=== PATIENT | male | born 1985 | race American Indian/Alaskan Native ===

== ENCOUNTER 2019-09-30 23:54 | Emergency (ER) | payer SELFPAY ==
[2019-10-01] MEDS ORDERED: NITROGLYCERIN 0.4 MG TAB SUBL SL ONE (00:21)
[2019-10-01] MEDS ORDERED: ASPIRIN 325 MG TAB PO ONE (00:21)
[2019-10-01] MEDS ORDERED: ACETAMINOPHEN 325 MG TAB PO ONE (00:22)
--- NOTE | 2019-10-01 00:35 | Emergency Department Report ---
ED Chest Pain HPI - General Chief Complaint: Chest Pain Stated Complaint: SIDNEY CHEST PAIN Time Seen by Provider: 10/01/19 00:11 Source: patient, EMS Mode of arrival: Stretcher Limitations: No Limitations - History of Present Illness Initial Comments: Patient is a 34-year-old F Mexican male who is presenting with chest pain for the past day. Patient states pain is in the center and right side of his chest. He has some shortness of breath and just an occasional cough which is nonproductive. Patient states pain is tight sensation is 6 out of 10 in s everity. Patient is worse with exertion and he states he is experiencing dizziness. He has had several episodes of nausea with vomiting. Patient does have a history of hypertension but is noncompliant with medications. He smokes cigarettes as well as marijuana but no other illicit drugs. Severity scale (0 -10): 9 - Related Data Previous Rx's Medication Instructions Recorded Last Taken Type Albuterol INH(or & Nicu Only) 2 puff IH QID PRN #1 inh 08/11/19 Unknown Rx [ProAir HFA Inhaler] Ondansetron [Zofran Odt] 4 mg PO Q8HR PRN #15 tab.rapdis 08/11/19 Unknown Rx Allergies Allergy/AdvReac Type Severity Reaction Status Date / Time No Known Allergies Allergy Unverified 10/01/19 00:28 Heart Score - HEART Score History: Slightly suspicious EKG: Non-specific Age: < 45 Risk factors: No known risk factors Troponin: < normal limit HEART Score: 1 ED Review of Systems ROS: Stated complaint: SIDNEY CHEST PAIN Other details as noted in HPI Comment: All other systems reviewed and negative ED Past Medical Hx - Past Medical History Previous Medical History?: No - Surgical History Past Surgical History?: No - Social History Smoking Status: Current Every Day Smoker Substance Use Type: Alcohol - Medications Home Medications: Home Medications Medication Instructions Recorded Confirmed Last Taken Type Albuterol INH(or & Nicu Only) 2 puff IH QID PRN #1 inh 08/11/19 Unknown Rx [ProAir HFA Inhaler] Ondansetron [Zofran Odt] 4 mg PO Q8HR PRN #15 tab.rapdis 08/11/19 Unknown Rx ED Physical Exam - General Limitations: No Limitations General appearance: alert, in no apparent distress - Head Head exam: Present: atraumatic, normocephalic - Eye Eye exam: Present: normal appearance - ENT ENT exam: Present: mucous membranes moist - Neck Neck exam: Present: normal inspection - Respiratory Respiratory exam: Present: normal lung sounds bilaterally. Absent: respiratory distress, wheezes, rales, chest wall tenderness, accessory muscle use, decreased breath sounds - Cardiovascular Cardiovascular Exam: Present: regular rate, normal rhythm, normal heart sounds. Absent: systolic murmur, diastolic murmur, rubs, gallop - GI/Abdominal GI/Abdominal exam: Present: soft, normal bowel sounds. Absent: distended, tenderness, guarding - Rectal Rectal exam: Present: deferred - Extremities Exam Extremities exam: Present: normal inspection - Back Exam Back exam: Present: normal inspection - Neurological Exam Neurological exam: Present: alert, oriented X3 - Psychiatric Psychiatric exam: Present: normal affect, normal mood - Skin Skin exam: Present: warm, dry, intact, normal color. Absent: rash ED Course Vital Signs 10/01/19 10/01/19 10/01/19 00:22 00:26 00:34 Temperature 98.5 F Pulse Rate 107 H 107 H Respiratory 18 18 Rate Blood Pressure 137/102 Blood Pressure 137/102 [Left] O2 Sat by Pulse 98 98 Oximetry 10/01/19 10/01/19 01:18 01:41 Temperature Pulse Rate 103 H 106 H Respiratory 16 16 Rate Blood Pressure Blood Pressure 128/86 133/88 [Left] O2 Sat by Pulse 99 Oximetry ED Medical Decision Making - Lab Data Result diagrams: 10/01/19 00:24 10/01/19 00:24 Lab Results 10/01/19 10/01/19 10/01/19 Range/Units 00:24 00:24 00:24 WBC 6.0 (4.5-11.0) K/mm3 RBC 4.71 (3.65-5.03) M/mm3 Hgb 14.9 (11.8-15.2) gm/dl Hct 43.6 (35.5-45.6) % MCV 93 (84-94) fl MCH 32 (28-32) pg MCHC 34 (32-34) % RDW 12.3 L (13.2-15.2) % Plt Count 259 (140-440) K/mm3 Lymph % (Auto) 25.6 (13.4-35.0) % [place] % (Auto) 11.0 H (0.0-7.3) % Eos % (Auto) 0.4 (0.0-4.3) % Baso % (Auto) 0.5 (0.0-1.8) % Lymph # 1.5 (1.2-5.4) K/mm3 [place] # 0.7 (0.0-0.8) K/mm3 Eos # 0.0 (0.0-0.4) K/mm3 Baso # 0.0 (0.0-0.1) K/mm3 Seg Neutrophils % 62.5 (40.0-70.0) % Seg Neutrophils # 3.7 (1.8-7.7) K/mm3 PT 13.6 (12.2-14.9) Sec. INR 1.06 (0.87-1.13) APTT 27.3 (24.2-36.6) Sec. D-Dimer 136.52 (0-234) ng/mlDDU Sodium 133 L (137-145) mmol/L Potassium 3.9 (3.6-5.0) mmol/L Chloride 88.5 L (98-107) mmol/L Carbon Dioxide 22 (22-30) mmol/L Anion Gap 26 mmol/L BUN 14 (9-20) mg/dL Creatinine 0.7 L (0.8-1.5) mg/dL Estimated GFR > 60 ml/min BUN/Creatinine Ratio 20 % Glucose 92 (75-100) mg/dL Calcium 9.9 (8.4-10.2) mg/dL Troponin T < 0.010 (0.00-0.029) ng/mL Urine Opiates Screen Urine Methadone Screen Ur Barbiturates Screen Ur Phencyclidine Scrn Ur Amphetamines Screen U Benzodiazepines Scrn Urine Cocaine Screen U Marijuana (THC) Screen 10/01/19 10/01/19 Range/Units 00:24 00:50 WBC (4.5-11.0) K/mm3 RBC (3.65-5.03) M/mm3 Hgb (11.8-15.2) gm/dl Hct (35.5-45.6) % MCV (84-94) fl MCH (28-32) pg MCHC (32-34) % RDW (13.2-15.2) % Plt Count (140-440) K/mm3 Lymph % (Auto) (13.4-35.0) % [place] % (Auto) (0.0-7.3) % Eos % (Auto) (0.0-4.3) % Baso % (Auto) (0.0-1.8) % Lymph # (1.2-5.4) K/mm3 [place] # (0.0-0.8) K/mm3 Eos # (0.0-0.4) K/mm3 Baso # (0.0-0.1) K/mm3 Seg Neutrophils % (40.0-70.0) % Seg Neutrophils # (1.8-7.7) K/mm3 PT (12.2-14.9) Sec. INR (0.87-1.13) APTT (24.2-36.6) Sec. D-Dimer (0-234) ng/mlDDU Sodium (137-145) mmol/L Potassium (3.6-5.0) mmol/L Chloride (98-107) mmol/L Carbon Dioxide (22-30) mmol/L Anion Gap mmol/L BUN (9-20) mg/dL Creatinine (0.8-1.5) mg/dL Estimated GFR ml/min BUN/Creatinine Ratio % Glucose (75-100) mg/dL Calcium (8.4-10.2) mg/dL Troponin T < 0.010 (0.00-0.029) ng/mL Urine Opiates Screen Presumptive negative Urine Methadone Screen Presumptive negative Ur Barbiturates Screen Presumptive negative Ur Phencyclidine Scrn Presumptive negative Ur Amphetamines Screen Presumptive positive U Benzodiazepines Scrn Presumptive negative Urine Cocaine Screen Presumptive positive U Marijuana (THC) Screen Presumptive positive - EKG Data -: EKG Interpreted by Ia - EKG Data 10/01/19 01:34 EKG shows sinus rhythm rate of 100. [place] is normal. There is a prolonged QT. There is appear to be evidence of LVH. There is no evidence of any ST elevation or depression. - Radiology Data Ordering Physician: ALLIE SALINAS MD Date of Service: 10/01/19 Procedure(s): XR chest routine 2V Accession Number(s): [id number] cc: ALLIE SALINAS MD Fluoro Time In Minutes: CHEST 2 VIEWS, 10/01/2019 12:43 AM INDICATION: Cough. Chest pain. COMPARISON: None FINDINGS: Support devices: None. Heart: The cardiac silhouette is normal in size. Lungs/pleura: The lungs are clear of focal airspace disease or significant pleural effusion. Additional findings: No significant acute abnormality. IMPRESSION: 1. No evidence of acute cardiopulmonary process. Signer Name: Bonnie Huertas MD Signed: 10/01/2019 1:03 AM Workstation Name: [employer] Seeking - Medical Decision Making Patient is a 34-year-old F Mexican male is presenting with some right-sided chest discomfort with shortness of breath. Patient is pain is not reproducible. Patient drug screen showed that he is positive for cocaine and amphetamines. This is likely the cause of the patient's pain. He has been ruled out for acute coronary syndrome with 2- troponins. Patient encouraged to not use these illicit drugs as they can lead to worsening of his condition. Patient discharged home. Critical care attestation.: If time is entered above; I have spent that time in minutes in the direct care of this critically ill patient, excluding procedure time. ED Disposition Clinical Impression: Atypical chest pain, Cocaine abuse, Amphetamine abuse Disposition: -01 TO HOME OR SELFCARE Is pt being admited?: No Does the pt Need Aspirin: No Condition: Stable Instructions: Chest Pain (ED) Referrals: ELIEL NEAL MD [Referring] - 3-5 Days Time of Disposition: 02:44
[2019-10-01 00:36] LABS: Basophils % (Auto) 0.5 % (0.0-1.8); Eosinophils % (Auto) 0.4 % (0.0-4.3); Hematocrit 43.6 % (35.5-45.6); Hemoglobin 14.9 gm/dl (11.8-15.2); Lymphocytes # (Auto) 1.5 K/mm3 (1.2-5.4); Lymphocytes % (Auto) 25.6 % (13.4-35.0); Mean Corpuscular HGB Conc 34 % (32-34); Mean Corpuscular Volume 93 fl (84-94); Monocytes # (Auto) 0.7 K/mm3 (0.0-0.8); Platelet Count 259 K/mm3 (140-440); Red Blood Count 4.71 M/mm3 (3.65-5.03); Red Cell Distribution Width 12.3 % (13.2-15.2)
[2019-10-01 00:45] LABS: INR 1.06 (0.87-1.13)
[2019-10-01 00:46] LABS: Partial Thromboplastin Time 27.3 Sec. (24.2-36.6)
[2019-10-01 01:01] LABS: BUN/Creatinine Ratio 20; Blood Urea Nitrogen 14 mg/dL (9-20); Calcium 9.9 mg/dL (8.4-10.2); Hemolysis Index 25
--- NOTE | 2019-10-01 01:07 | XRay Report ---
CHEST 2 VIEWS, 10/01/2019 12:43 AM INDICATION: Cough. Chest pain. COMPARISON: None FINDINGS: Support devices: None. Heart: The cardiac silhouette is normal in size. Lungs/pleura: The lungs are clear of focal airspace disease or significant pleural effusion. Additional findings: No significant acute abnormality. IMPRESSION: 1. No evidence of acute cardiopulmonary process. Signer Name: Bonnie Huertas MD Signed: 10/01/2019 1:03 AM Workstation Name: [email or web address]
[2019-10-01 01:20] LABS: Benzodiazepines Screen,Urine PRESUMPTIVE NEGATIVE; Methadone Screen,Urine PRESUMPTIVE NEGATIVE; Opiate Screen,Urine PRESUMPTIVE NEGATIVE
[2019-10-01 01:32] LABS: Amphetamine Screen,Urine PRESUMPTIVE POSITIVE; Cannabinoid Screen,Urine PRESUMPTIVE POSITIVE; Cocaine Screen,Urine PRESUMPTIVE POSITIVE
[2019-10-01 01:43] VITALS: BP 133/88
== END 2019-10-01 03:00 | disposition home or self-care (01) ==
LOC: ED 23:54
DX: F14.10 Cocaine abuse, uncomplicated (principal); F15.10 Other stimulant abuse, uncomplicated; R07.89 Other chest pain; F17.200 Nicotine dependence, unspecified, uncomplicated
CPT/HCPCS: 36415; 71046; 80048; 80307; 84484; 85025; 85379; 85610; 85730; 93005

== ENCOUNTER 2019-12-10 00:53 | Emergency (ER) | payer SELFPAY | END 2019-12-10 01:45 | disposition left against medical advice (07) | LOC: ED 00:53 | DX: R06.02 Shortness of breath (principal); Z53.21 Procedure and treatment not carried out due to patient leaving prior to being seen by health care provider ==

== ENCOUNTER 2020-06-02 10:55 | Inpatient (IN) | payer OTHER ==
--- NOTE | 2020-06-02 11:32 | Event Note ---
ED Screening Note ED Screening Note: polysub cocaine last night co cp and sob enlarged abd ble edema no hi no si This initial assessment/diagnostic orders/clinical plan/treatment(s) is/are subject to change based on patients health status, clinical progression and re- assessment by fellow clinical providers in the ED. Further treatment and workup at subsequent clinical providers discretion. Patient/guardian urged not to elope from the ED as their condition may be serious if not clinically assessed and managed. Initial orders include: ro cardiac event mhe
[2020-06-02 11:59] LABS: Bilirubin,Urine SM (Negative); Blood,Urine NEG (Negative); Color,Urine Amber (Yellow); Mucus,Urine 2+ /HPF
--- NOTE | 2020-06-02 12:01 | XRay Report ---
CHEST 2 VIEWS INDICATION / CLINICAL INFORMATION: Shortness of breath. COMPARISON: 10/01/2019 FINDINGS: SUPPORT DEVICES: None. HEART / MEDIASTINUM: There is mild cardiomegaly. LUNGS / PLEURA: There is mild interstitial pulmonary edema. No pneumothorax. ADDITIONAL FINDINGS: No significant additional findings. IMPRESSION: 1. Mild cardiomegaly with mild interstitial pulmonary edema likely indicating CHF. Signer Name: Loi Be MD Signed: 06/02/2020 11:56 AM Workstation Name: [id number]
[2020-06-02 12:02] LABS: Amphetamine Screen,Urine Negative; Methadone Screen,Urine Negative; Opiate Screen,Urine Negative
[2020-06-02 12:09] LABS: Ictotest,Urine Positive (Negative)
[2020-06-02 12:54] LABS: Benzodiazepines Screen,Urine PRESUMPTIVE POSITIVE; Cannabinoid Screen,Urine PRESUMPTIVE POSITIVE; Cocaine Screen,Urine PRESUMPTIVE POSITIVE
[2020-06-02 13:09] LABS: Basophils % (Auto) 0.9 % (0.0-1.8); Eosinophils % (Auto) 0.7 % (0.0-4.3); Hematocrit 38.7 % (35.5-45.6); Hemoglobin 12.3 gm/dl (11.8-15.2); Lymphocytes # (Auto) 1.8 K/mm3 (1.2-5.4); Mean Corpuscular HGB Conc 32 % (32-34); Mean Corpuscular Volume 96 fl (84-94); Monocytes # (Auto) 0.7 K/mm3 (0.0-0.8); Monocytes % (Auto) 13.1 % (0.0-7.3); Platelet Count 189 K/mm3 (140-440); Red Blood Count 4.04 M/mm3 (3.65-5.03); Red Cell Distribution Width 13.7 % (13.2-15.2)
[2020-06-02 13:37] LABS: Alanine Aminotransferase 154 units/L (7-56); Albumin 3.3 g/dL (3.9-5); BUN/Creatinine Ratio 13; Blood Urea Nitrogen 10 mg/dL (9-20); Calcium 8.7 mg/dL (8.4-10.2); Hemolysis Index 2
--- NOTE | 2020-06-02 13:52 | Emergency Department Report ---
ED Shortness of Breath HPI - General Chief Complaint: Medical Clearance Stated Complaint: SWELLING IN LOWER EXTREMITIES Time Seen by Provider: 06/02/20 11:31 Source: patient, EMS Mode of arrival: Wheelchair Limitations: No Limitations - History of Present Illness Initial Comments: 35-year-old male, no past medical history, presents to ED with shortness of breath, bilateral lower extremity swelling. States he has had some dyspnea exertion for several months. Patient reports onset of bilateral lower extremity swelling over the last week or 2. Patient reports cough and orthopnea as well. Patient states both hs mom and aunt approximately 1 month ago. His mother of cancer. Patient states he has been depressed about his family a nd also his job. He reports he has been drinking often and using cocaine about 3 times a week. Also reports he has been abusing pills. Patient denies any SI or HI. MD Complaint: shortness of breath -: week(s) (1) Severity: moderate Consistency: intermittent Improves With: rest, upright position Worsens With: lying flat, exertion Associated Symptoms: cough Treatments Prior to Arrival: none - Related Data Home Oxygen Therapy: No Home Medications Medication Instructions Recorded Confirmed Last Taken No Known Home Medications [No 06/02/20 06/02/20 Unknown Reported Home Medications] Allergies Allergy/AdvReac Type Severity Reaction Status Date / Time No Known Allergies Allergy Unverified 10/01/19 00:28 ED Review of Systems ROS: Stated complaint: SWELLING IN LOWER EXTREMITIES Other details as noted in HPI Comment: All other systems reviewed and negative Constitutional: denies: fever Respiratory: cough, orthopnea, SOB with exertion Cardiovascular: edema. denies: chest pain Psychiatric: depression. denies: homicidal thoughts, suicidal thoughts ED Past Medical Hx - Past Medical History Previous Medical History?: No - Social History Smoking Status: Current Every Day Smoker Substance Use Type: Alcohol, Cocaine, Methamphetamines, Other - Medications Home Medications: Home Medications Medication Instructions Recorded Confirmed Last Taken Type No Known Home Medications [No 06/02/20 06/02/20 Unknown History Reported Home Medications] ED Physical Exam - General Limitations: No Limitations General appearance: alert, in no apparent distress - Head Head exam: Present: atraumatic, normocephalic - Eye Eye exam: Present: normal appearance, EOMI - ENT ENT exam: Present: mucous membranes moist - Neck Neck exam: Present: normal inspection - Respiratory Respiratory exam: Present: normal lung sounds bilaterally. Absent: respiratory distress - Cardiovascular Cardiovascular Exam: Present: normal rhythm, tachycardia - GI/Abdominal GI/Abdominal exam: Present: soft. Absent: distended, tenderness - Extremities Exam Extremities exam: Present: other (2+ pitting edema BLE) - Neurological Exam Neurological exam: Present: alert, oriented X3 - Psychiatric Psychiatric exam: Present: normal affect, normal mood - Skin Skin exam: Present: warm, dry, intact, normal color ED Course Vital Signs 06/02/20 06/02/20 11:01 14:26 Temperature 98.8 F Pulse Rate 118 H 102 H Respiratory 22 20 Rate Blood Pressure 103/76 Blood Pressure 108/62 [Left] O2 Sat by Pulse 99 98 Oximetry ED Medical Decision Making - Lab Data Result diagrams: 06/02/20 12:27 06/02/20 12:27 - EKG Data -: EKG Interpreted by [facility] EKG shows normal: sinus rhythm, axis, QRS complexes Rate: normal - EKG Data Interpretation: other (prolonged QT; lateral T wave inversions) - Radiology Data Radiology results: report reviewed, image reviewed - Medical Decision Making 35-year-old male presents to ED with dyspnea on exertion, orthopnea, bilateral lower extremity swelling. Patient likely has new onset CHF secondary to his alcohol and drug abuse. Pulmonary edema present on chest x-ray. IV Lasix given. EKG shows no ST changes. Troponin is normal. Patient will be admitted by hospitalist, , for further management. - Differential Diagnosis CHF Critical care attestation.: If time is entered above; I have spent that time in minutes in the direct care of this critically ill patient, excluding procedure time. ED Disposition Clinical Impression: New onset of congestive heart failure, Elevated liver enzymes, Alcohol abuse, Cocaine abuse Disposition: OP ADMIT IP TO THIS HOSP Is pt being admited?: Yes Condition: Stable Time of Disposition: 14:20
[2020-06-02] MEDS ORDERED: FUROSEMIDE 40 MG/4 ML INJ IV ONE (13:55)
[2020-06-02] MEDS ORDERED: MAGNESIUM HYDROXIDE (MOM) ORAL LIQD UDC PO PRN (15:07)
--- NOTE | 2020-06-02 15:25 | History and Physical Report ---
History of Present Illness Date of examination: 06/02/20 Date of admission: 06/02/20 14:21 Chief complaint: Shortness of breath Lower extremity swelling History of present illness: 35-year-old -E[place]ian with no significant past medical history presenting to the emergency room today complaining of difficulty breathing and lower extremity swelling over the past several months. Extremity swelling is said to have gotten worse over the past 2 weeks. He has had some cough which is nonproductive and he has also been having some orthopnea. He denies any chest pain, no nausea vomiting, no fever or chills, no headache or dizziness. Denies any sick contacts and no recent travel. Denies any contact with anyone with COVID-19. Patient indicates that his aunt and mother about a month ago and therefore he has been drinking alcohol a lot and also has been abusing cocaine about 3 times a week. He states he has been quite depressed about his family and his job but denies any suicidal or homicidal ideations. Work-up in the emergency room today reveals pulmonary edema on chest x-ray. Urine drug screen was positive for benzodiazepine marijuana and cocaine. BNP and liver enzymes were also elevated. Patient admitted with new onset CHF. Past History Past Medical History: No medical history Past Surgical History: No surgical history Social history: lives with family, smoking, alcohol abuse, other (Cocaine, marijuana, methamphetamine abuse) Family history: no significant family history Medications and Allergies Allergies Allergy/AdvReac Type Severity Reaction Status Date / Time No Known Allergies Allergy Unverified 10/01/19 00:28 Home Medications Medication Instructions Recorded Confirmed Last Taken Type No Known Home Medications [No 06/02/20 06/02/20 Unknown History Reported Home Medications] Active Meds: Active Medications Acetaminophen (Acetaminophen 325 Mg Tab) 650 mg PO Q4H PRN PRN Reason: Pain MILD(1-3)/Fever >100.5/MALONE Enoxaparin Sodium (Enoxaparin 40 Mg/0.4 Ml Inj) 40 mg SUB-Q QDAY@2200 NADEEM; Protocol Furosemide (Furosemide 40 Mg/4 Ml Inj) 40 mg IV BID@0600,1800 NADEEM Magnesium Hydroxide (Magnesium Hydroxide (Mom) Oral Liqd Udc) 30 ml PO Q4H PRN PRN Reason: Constipation Morphine Sulfate (Morphine 2 Mg/1 Ml Inj) 2 mg IV Q5MIN PRN PRN Reason: Chest Pain unrelieved by NTG Ondansetron HCl (Ondansetron 4 Mg/2 Ml Inj) 4 mg IV Q8H PRN PRN Reason: Nausea And Vomiting Sodium Chloride (Sodium Chloride 0.9% 10 Ml Flush Syringe) 10 ml IV BID NADEEM Sodium Chloride (Sodium Chloride 0.9% 10 Ml Flush Syringe) 10 ml IV PRN PRN PRN Reason: LINE FLUSH Review of Systems Constitutional: no fever, no chills Ears, nose, mouth and throat: no nasal congestion, no sore throat Cardiovascular: leg edema, no chest pain, no palpitations Respiratory: shortness of breath, no cough Gastrointestinal: no abdominal pain, no nausea, no vomiting, no diarrhea, no melena Genitourinary Male: no dysuria, no hematuria, no flank pain Musculoskeletal: no neck pain, no low back pain Integumentary: no rash, no pruritis Neurological: no headaches, no confusion Psychiatric: depression, no anxiety, no hallucinations, no hopelessness, no confusion Exam - Constitutional Vitals: Temp Pulse Resp BP Pulse Ox 98.8 F 102 H 20 108/62 98 06/02/20 11:01 06/02/20 14:26 06/02/20 14:26 06/02/20 14:26 06/02/20 14:26 General appearance: Present: no acute distress, well-nourished - EENT Eyes: Present: PERRL, EOM intact. Absent: scleral icterus ENT: hearing intact, clear oral mucosa, dentition normal - Neck Neck: Present: supple, normal ROM - Respiratory Respiratory effort: normal Respiratory: bilateral: rales - Cardiovascular Rhythm: regular Heart Sounds: Present: S1 & S2. Absent: gallop, systolic murmur, diastolic murmur, rub - Extremities Extremities: no ischemia, pulses intact, pulses symmetrical, normal temperature, normal color, Full ROM Extremity abnormal: edema (3+ bilateral lower extremity edema) Peripheral Pulses: within normal limits - Abdominal General gastrointestinal: Present: soft, non-tender, non-distended, normal bowel sounds. Absent: mass Male genitourinary: Present: penile edema, scrotal edema - Integumentary Integumentary: Present: clear, warm, dry. Absent: rash - Musculoskeletal Musculoskeletal: strength equal bilaterally - Psychiatric Psychiatric: appropriate mood/affect, intact judgment & insight, memory intact, cooperative - Neurologic Neurologic: CNII-XII intact, no focal deficits, moves all extremities - Additional findings Additional findings: Skin abscess on back of the neck. Tender , 4 x 4 cm in size HEART Score - HEART Score Troponin: Troponin T < 0.010 ng/mL (0.00-0.029) 06/02/20 12:27 Results - Labs CBC & Chem 7: 06/02/20 12:06/02/20 12: Labs: Abnormal lab results 06/02/20 06/02/20 06/02/20 Range/Units 12: 12: 12:27 MCV 96 H (84-94) fl Lymph % (Auto) 37.0 H (13.4-35.0) % [place] % (Auto) 13.1 H (0.0-7.3) % Sodium 133 L (137-145) mmol/L AST 129 H (5-40) units/L ALT 154 H (7-56) units/L NT-Pro-B Natriuret Pep 910.6 H (0-450) pg/mL Albumin 3.3 L (3.9-5) g/dL Salicylates 1.7 L (2.8-20.0) mg/dL Acetaminophen (10.0-30.0) ug/mL 06/02/20 Range/Units 12:27 MCV (84-94) fl Lymph % (Auto) (13.4-35.0) % [place] % (Auto) (0.0-7.3) % Sodium (137-145) mmol/L AST (5-40) units/L ALT (7-56) units/L NT-Pro-B Natriuret Pep (0-450) pg/mL Albumin (3.9-5) g/dL Salicylates (2.8-20.0) mg/dL Acetaminophen 5.0 L (10.0-30.0) ug/mL Assessment and Plan - Patient Problems (1) New onset of congestive heart failure Current Visit: Yes Status: Acute Plan to address problem: Patient admitted to telemetry. Will monitor inputs and outputs and also monitor daily weight. We will schedule patient for echocardiogram. We will place a consult to cardiology for evaluation. (2) Depression Current Visit: Yes Status: Acute Plan to address problem: Patient denies suicidal or homicidal ideations. Consult placed to mental health for evaluation. (3) Skin abscess Current Visit: Yes Status: Acute Plan to address problem: Patient placed on empiric IV antibiotics. We will consult surgery if needed. (4) Alcohol abuse Current Visit: Yes Status: Acute Plan to address problem: We will monitor for alcohol withdrawal symptoms. We will place on CIWA protocol. (5) Cocaine abuse Current Visit: Yes Status: Acute Plan to address problem: Patient counseled on quitting cocaine abuse. (6) Elevated liver enzymes Current Visit: Yes Status: Acute Plan to address problem: Possibly secondary to alcohol abuse. Will monitor liver enzymes and also check hepatitis profile. Consult placed to gastroenterology for evaluation and recommendation. (7) DVT prophylaxis Current Visit: Yes Status: Acute Plan to address problem: Patient placed on subcutaneous Lovenox. (8) Full code status Current Visit: Yes Status: Acute Plan to address problem: Patient is a full code.
[2020-06-02] MEDS: CLINDAMYCIN 600 MG/50 mL 600 MG/50 ML BAG IV SCH (17:07)
[2020-06-02] MEDS: MORPHINE 2 MG/1 ML INJ IV PRN (19:58)
[2020-06-02] MEDS: ENOXAPARIN 40 MG/0.4 ML INJ SUB-Q SCH (22:26)
[2020-06-02] MEDS: FUROSEMIDE 40 MG/4 ML INJ IV SCH (22:34)
[2020-06-03] MEDS: CLINDAMYCIN 600 MG/50 mL 600 MG/50 ML BAG IV SCH ×4 (03:40→19:16)
[2020-06-03] MEDS: MORPHINE 2 MG/1 ML INJ IV PRN (03:47)
[2020-06-03 06:23] LABS: Eosinophils % (Auto) 0.8 % (0.0-4.3); Hematocrit 36.3 % (35.5-45.6); Hemoglobin 11.9 gm/dl (11.8-15.2); Lymphocytes # (Auto) 1.7 K/mm3 (1.2-5.4); Mean Corpuscular HGB Conc 33 % (32-34); Mean Corpuscular Volume 95 fl (84-94); Monocytes # (Auto) 0.7 K/mm3 (0.0-0.8); Monocytes % (Auto) 14.6 % (0.0-7.3); Platelet Count 177 K/mm3 (140-440); Red Cell Distribution Width 13.5 % (13.2-15.2)
[2020-06-03 06:34] LABS: INR 1.67 (0.87-1.13)
[2020-06-03 06:43] LABS: Hepatitis B Surface Antigen Non-Reactive (Negative); Hepatitis C Virus Antibody Non-Reactive (NonReactive)
[2020-06-03 07:44] LABS: BUN/Creatinine Ratio 16; Blood Urea Nitrogen 13 mg/dL (9-20); Calcium 8.2 mg/dL (8.4-10.2); Hemolysis Index 4
--- NOTE | 2020-06-03 08:18 | Consultation ---
History of Present Illness - Reason for Consult Consult date: 06/03/20 Reason for consult: MHE Requesting physician: NEW RICCI - Chief Complaint Chief complaint: Shortness of breath Lower extremity swelling - History of Present Psychiatric Illness Per ED Provider: 35-year-old male, no past medical history, presents to ED with shortness of breath, bilateral lower extremity swelling. States he has had some dyspnea exertion for several months. Patient reports onset of bilateral lower extremity swelling over the last week or 2. Patient reports cough and orthopnea as well. Patient states both hs mom and aunt approximately 1 month ago. His mother of cancer. Patient states he has been depressed about his family and also his job. He reports he has been drinking often and using cocaine about 3 times a week. Also reports he has been abusing pills. Patient denies any SI or HI. PSYCH HPI Patient describes a good and stable mood, denies being depressed or excessively nervous. Patient eats and sleeps well. Patient denies panic attacks, recurrent nightmares or flashbacks. Patient denies symptoms suggestive of OCD or PTSD. Patient denies hallucinations, paranoia, thought interference and no features suggestive of hypomania or angelique. Patiently completely denies suicidal or homicidal thoughts. PAST PSYCHIATRIC HISTORY Diagnoses: Suicide attempts or Self-harm behavior: Prior psychiatric hospitalizations: Substance Abuse history: Previous psychiatric medications tried: Outpatient treatment: PAST MEDICAL HISTORY: Family Psychiatric History: None reported or documented SOCIAL HISTORY Marital Status: Living Arrangements: Employment Status: Access to guns/weapons: Education: History of Abuse: Legal History: REVIEW OF SYSTEMS ROS cannot be reliably obtained from the patient due to her confusion and somnolence. REVIEW OF SYSTEMS Constitutional: Negative for weight loss ENT: Negative for stridor Respiratory: Negative for cough or hemoptysis All other systems reviewed and are negative MENTAL STATUS EXAMINATION General Appearance and Behavior: Age appropriate, good hygiene, wearing appropriate clothes, good eye contact, cooperative polite with questioning. Cooperation: Participating/engaged Psychomotor Behavior: unremarkable and within normal limits Mood: Good Affect and affective range: congruent with mood Thought Process: Fluent/Logical, Thought Content: Within reality, Speech: Normal volume, Regular rate and rhythm, Intellectual Functioning: Average Suicidal Ideation: Denies SI Homicidal Ideation: Denies HI Impulse Control: Unimpaired Insight and Judgment: Normal insight and judgment, Memory: Normal, Attention: Normal, Orientation: Alert, oriented, Diagnoses: Treatment Plan MEDICATIONS: Risks, benefits and alternatives of medications discussed with the patient, questions answered and consent obtained from patient. PSYCHOTHERAPY: Supportive psychotherapy provided MEDICAL: Per primary team DELIRIUM PRECAUTIONS: Please re-orient patient frequently, keep lights on during the day, and minimize benzodiazepines and opiates as these medications could worsen patient's confusion. [employer] ME[employer]IC: DISPOSITION: Do? Do Not Recommend acute inpatient psychiatric hospitalization at this time. Case discussed with Dr. Nava who agrees with current disposition LEGAL STATUS: 1013 FOLLOW-UP: Will follow Thank you for the consult. Please contact with any questions and/or concerns. Medications and Allergies Allergies Allergy/AdvReac Type Severity Reaction Status Date / Time No Known Allergies Allergy Unverified 10/01/19 00:28 Home Medications Medication Instructions Recorded Confirmed Last Taken Type No Known Home Medications [No 06/02/20 06/02/20 Unknown History Reported Home Medications] Active Meds: Active Medications Acetaminophen (Acetaminophen 325 Mg Tab) 650 mg PO Q4H PRN PRN Reason: Pain MILD(1-3)/Fever >100.5/MALONE Enoxaparin Sodium (Enoxaparin 40 Mg/0.4 Ml Inj) 40 mg SUB-Q QDAY@2200 [facility]; Protocol Last Admin: 06/02/20 22:26 Dose: 40 mg Documented by: Furosemide (Furosemide 40 Mg/4 Ml Inj) 40 mg IV BID@0600,1800 [facility] Last Admin: 06/02/20 22:34 Dose: 40 mg Documented by: Clindamycin HCl (Cleocin 600 Mg/50 Ml) 600 mg in 50 mls @ 100 mls/hr IV Q8H [facility]; Protocol Last Admin: 06/03/20 03:40 Dose: 100 mls/hr Documented by: Magnesium Hydroxide (Magnesium Hydroxide (Mom) Oral Liqd Udc) 30 ml PO Q4H PRN PRN Reason: Constipation Morphine Sulfate (Morphine 2 Mg/1 Ml Inj) 2 mg IV Q5MIN PRN PRN Reason: Chest Pain unrelieved by NTG Last Admin: 06/03/20 03:47 Dose: 2 mg Documented by: Ondansetron HCl (Ondansetron 4 Mg/2 Ml Inj) 4 mg IV Q8H PRN PRN Reason: Nausea And Vomiting Sodium Chloride (Sodium Chloride 0.9% 10 Ml Flush Syringe) 10 ml IV BID [facility] Last Admin: 06/02/20 22:32 Dose: 10 ml Documented by: Sodium Chloride (Sodium Chloride 0.9% 10 Ml Flush Syringe) 10 ml IV PRN PRN PRN Reason: LINE FLUSH Last Admin: 06/02/20 22:34 Dose: 10 ml Documented by: Mental Status Exam - Vital signs Last Vital Signs Temp 98.0 F 06/03/20 03:17 Pulse 117 H 06/03/20 03:17 Resp 22 06/03/20 03:47 BP 106/71 06/03/20 03:17 Pulse Ox 98 06/03/20 03:17 Results Result Diagrams: 06/03/20 05:16 06/03/20 05:16 Abnormal lab results 06/02/20 06/02/20 06/02/20 Range/Units 12:27 12:27 12:27 MCV 96 H (84-94) fl Lymph % (Auto) 37.0 H (13.4-35.0) % [place] % (Auto) 13.1 H (0.0-7.3) % PT (12.2-14.9) Sec. INR (0.87-1.13) Sodium 133 L (137-145) mmol/L AST 129 H (5-40) units/L ALT 154 H (7-56) units/L NT-Pro-B Natriuret Pep 910.6 H (0-450) pg/mL Albumin 3.3 L (3.9-5) g/dL Salicylates 1.7 L (2.8-20.0) mg/dL Acetaminophen (10.0-30.0) ug/mL 06/02/20 06/03/20 06/03/20 Range/Units 12:27 05:16 05:16 MCV 95 H (84-94) fl Lymph % (Auto) 36.0 H (13.4-35.0) % [place] % (Auto) 14.6 H (0.0-7.3) % PT 19.7 H (12.2-14.9) Sec. INR 1.67 H (0.87-1.13) Sodium (137-145) mmol/L AST (5-40) units/L ALT (7-56) units/L NT-Pro-B Natriuret Pep (0-450) pg/mL Albumin (3.9-5) g/dL Salicylates (2.8-20.0) mg/dL Acetaminophen 5.0 L (10.0-30.0) ug/mL All other labs normal.
--- NOTE | 2020-06-03 10:40 | Consultation ---
History of Present Illness Consult date: 06/03/20 Consult reason: congestive heart failure History of present illness: This is a 35-year old M who presents with progressive shortness of breath or thopnea and lower extremity edema that extends upwards to his abdomen. Chest x- ray shows mild interstitial edema. Initial labs shows elevated liver enzymes and INR of 1.6. There is also evidence of poly-substance aabuse. Further evaluation with a echo shows a dilated cardiomyopathy with a severely decrease ejection fraction of 10-15%. The duration is uncertain. Patient denies a prior medical history and has not seen in physician in several years. He denies chest pain and denies palpitations. A cardiac consultation has been requested for CHF. Past History Past Medical History: No medical history Past Surgical History: No surgical history Social history: lives with family, smoking, alcohol abuse, other (Cocaine, marijuana, methamphetamine abuse) Family history: no significant family history Medications and Allergies Allergies Allergy/AdvReac Type Severity Reaction Status Date / Time No Known Allergies Allergy Unverified 10/01/19 00:28 Home Medications Medication Instructions Recorded Confirmed Last Taken Type No Known Home Medications [No 06/02/20 06/02/20 Unknown History Reported Home Medications] Active Meds: Active Medications Acetaminophen (Acetaminophen 325 Mg Tab) 650 mg PO Q4H PRN PRN Reason: Pain MILD(1-3)/Fever >100.5/MALONE Carvedilol (Carvedilol 6.25 Mg Tab) 6.25 mg PO BID [facility] Enoxaparin Sodium (Enoxaparin 40 Mg/0.4 Ml Inj) 40 mg SUB-Q QDAY@2200 [facility]; Protocol Last Admin: 06/02/20 22:26 Dose: 40 mg Documented by: Furosemide (Furosemide 40 Mg/4 Ml Inj) 40 mg IV BID@0600,1800 [facility] Last Admin: 06/02/20 22:34 Dose: 40 mg Documented by: Clindamycin HCl (Cleocin 600 Mg/50 Ml) 600 mg in 50 mls @ 100 mls/hr IV Q8H [facility] TO [facility]; Protocol Last Admin: 06/03/20 03:40 Dose: 100 mls/hr Documented by: Lisinopril (Lisinopril 5 Mg Tab) 5 mg PO QDAY [facility] Magnesium Hydroxide (Magnesium Hydroxide (Mom) Oral Liqd Udc) 30 ml PO Q4H PRN PRN Reason: Constipation Morphine Sulfate (Morphine 2 Mg/1 Ml Inj) 2 mg IV Q5MIN PRN PRN Reason: Chest Pain unrelieved by NTG Last Admin: 06/03/20 03:47 Dose: 2 mg Documented by: Ondansetron HCl (Ondansetron 4 Mg/2 Ml Inj) 4 mg IV Q8H PRN PRN Reason: Nausea And Vomiting Sodium Chloride (Sodium Chloride 0.9% 10 Ml Flush Syringe) 10 ml IV BID [facility] Last Admin: 06/02/20 22:32 Dose: 10 ml Documented by: Sodium Chloride (Sodium Chloride 0.9% 10 Ml Flush Syringe) 10 ml IV PRN PRN PRN Reason: LINE FLUSH Last Admin: 06/02/20 22:34 Dose: 10 ml Documented by: Spironolactone (Spironolactone 25 Mg Tab) 25 mg PO QDAY [facility] Review of Systems Cardiovascular: orthopnea, edema, shortness of breath, no palpitations, no rapid/irregular heart beat Physical Examination Vital Signs Temp Pulse Resp BP Pulse Ox 98.8 F 118 H 22 103/76 99 06/02/20 11:01 06/02/20 11:01 06/02/20 11:01 06/02/20 11:01 06/02/20 11:01 General appearance: no acute distress HEENT: Positive: PERRL Neck: Positive: trachea midline Cardiac: Positive: Tachycardia Lungs: Positive: Decreased Breath Sounds Neuro: Positive: Grossly Intact Extremities: Present: +4 Edema Results 06/03/20 05:16 06/03/20 05:16 Cardiac Enzymes 06/02/20 Range/Units 12:27 AST 129 H (5-40) units/L Coagulation 06/03/20 Range/Units 05:16 PT 19.7 H (12.2-14.9) Sec. INR 1.67 H (0.87-1.13) CBC 06/02/20 06/03/20 Range/Units 12:27 05:16 WBC 5.0 4.8 (4.5-11.0) K/mm3 RBC 4.04 3.80 (3.65-5.03) M/mm3 Hgb 12.3 11.9 (11.8-15.2) gm/dl Hct 38.7 36.3 (35.5-45.6) % Plt Count 189 177 (140-440) K/mm3 Lymph # (Auto) 1.8 1.7 (1.2-5.4) K/mm3 [place] # (Auto) 0.7 0.7 (0.0-0.8) K/mm3 Eos # (Auto) 0.0 0.0 (0.0-0.4) K/mm3 Baso # (Auto) 0.0 0.0 (0.0-0.1) K/mm3 Comprehensive Metabolic Panel 06/02/20 06/03/20 Range/Units 12:27 05:16 Sodium 133 L 135 L (137-145) mmol/L Potassium 4.2 3.7 (3.6-5.0) mmol/L Chloride 98.9 95.0 L (98-107) mmol/L Carbon Dioxide 23 25 (22-30) mmol/L BUN 10 13 (9-20) mg/dL Creatinine 0.8 0.8 (0.8-1.3) mg/dL Glucose 87 107 H (75-100) mg/dL Calcium 8.7 8.2 L (8.4-10.2) mg/dL AST 129 H (5-40) units/L ALT 154 H (7-56) units/L Alkaline Phosphatase 98 (35-129) units/L Total Protein 7.1 (6.3-8.2) g/dL Albumin 3.3 L (3.9-5) g/dL Assessment and Plan Acute systolic heart failure Echo: 4 chamber dilated cardiomyopathy, LVEF 10-15%. Duration is uncertain. Elevated liver enzymes Poly substance abuse
[2020-06-03] MEDS ORDERED: carvediloL 6.25 MG TAB PO SCH (11:00)
[2020-06-03] MEDS ORDERED: LISINOPRIL 5 MG TAB PO SCH (11:00)
[2020-06-03] MEDS ORDERED: SPIRONOLACTONE 25 MG TAB PO SCH (11:00)
[2020-06-03] MEDS: FUROSEMIDE 40 MG/4 ML INJ IV SCH ×2 (12:33→18:58)
[2020-06-03] MEDS: MILRINONE-D5W 20 MG/100 ML 20 MG/100 ML BAG IV SCH ×2 (12:37→13:18)
--- NOTE | 2020-06-03 14:24 | Consultation ---
History of Present Illness Consult date: 06/03/20 Chief complaint: abdominal and flank pain - History of present illness History of present illness: 35-year-old male who presented to the emergency room with increasing shortness of breath and bilateral lower extremity swelling for several months. He is being treated for new onset CHF. Patient states that he feels dizzy and has pressure buildup in his legs due to the swelling. He denies fevers or chills. He was seen by the wound care nurse today for a boil on his posterior scalp. The patient states it has been present for a few days. He states it started off as a scab and then started to have yellowish drainage after the scab was removed. He does not shave in the area. He has never had anything like this in the past. Surgery is consulted for evaluation for I&D. Past History Past Medical History: No medical history Past Surgical History: No surgical history Social history: lives with family, smoking, alcohol abuse, other (Cocaine, marijuana, methamphetamine abuse) Family history: no significant family history Medications and Allergies Allergies Allergy/AdvReac Type Severity Reaction Status Date / Time No Known Allergies Allergy Unverified 10/01/19 00:28 Home Medications Medication Instructions Recorded Confirmed Last Taken Type No Known Home Medications [No 06/02/20 06/02/20 Unknown History Reported Home Medications] Active Meds: Active Medications Acetaminophen (Acetaminophen 325 Mg Tab) 650 mg PO Q4H PRN PRN Reason: Pain MILD(1-3)/Fever >100.5/MALONE Carvedilol (Carvedilol 6.25 Mg Tab) 6.25 mg PO BID [facility] Last Admin: 06/03/20 12:33 Dose: 6.25 mg Documented by: Enoxaparin Sodium (Enoxaparin 40 Mg/0.4 Ml Inj) 40 mg SUB-Q QDAY@2200 [facility]; Protocol Last Admin: 06/02/20 22:26 Dose: 40 mg Documented by: Furosemide (Furosemide 40 Mg/4 Ml Inj) 40 mg IV BID@0600,1800 [facility] Last Admin: 06/03/20 12:33 Dose: 40 mg Documented by: Clindamycin HCl (Cleocin 600 Mg/50 Ml) 600 mg in 50 mls @ 100 mls/hr IV Q8H [facility]; Protocol Last Admin: 06/03/20 03:40 Dose: 100 mls/hr Documented by: Milrinone Lactate/Dextrose (Milrinone-D5w 20 Mg/100 Ml) 20 mg in 100 mls @ 9.956 mls/hr IV TITR [facility] Stop: 06/06/20 12:59 Last Admin: 06/03/20 13:18 Dose: 0.375 mcg/kg/min, 9.956 mls/hr Documented by: Lisinopril (Lisinopril 5 Mg Tab) 5 mg PO QDAY [facility] Last Admin: 06/03/20 12:34 Dose: 5 mg Documented by: Magnesium Hydroxide (Magnesium Hydroxide (Mom) Oral Liqd Udc) 30 ml PO Q4H PRN PRN Reason: Constipation Morphine Sulfate (Morphine 2 Mg/1 Ml Inj) 2 mg IV Q5MIN PRN PRN Reason: Chest Pain unrelieved by NTG Last Admin: 06/03/20 03:47 Dose: 2 mg Documented by: Ondansetron HCl (Ondansetron 4 Mg/2 Ml Inj) 4 mg IV Q8H PRN PRN Reason: Nausea And Vomiting Sodium Chloride (Sodium Chloride 0.9% 10 Ml Flush Syringe) 10 ml IV BID [facility] Last Admin: 06/03/20 12:35 Dose: 10 ml Documented by: Sodium Chloride (Sodium Chloride 0.9% 10 Ml Flush Syringe) 10 ml IV PRN PRN PRN Reason: LINE FLUSH Last Admin: 06/02/20 22:34 Dose: 10 ml Documented by: Spironolactone (Spironolactone 25 Mg Tab) 25 mg PO QDAY [facility] Last Admin: 06/03/20 12:34 Dose: 25 mg Documented by: Review of Systems All systems: negative (10 point ROS performed and negative except for that listed in HPI) Exam Vital Signs Temp Pulse Resp BP Pulse Ox 98.8 F 118 H 22 103/76 99 06/02/20 11:01 06/02/20 11:01 06/02/20 11:01 06/02/20 11:06/02/20 11:01 Narrative exam: Gen.: Awake, alert, oriented 3. No apparent distress ENT: Trachea midline. No lymphadenopathy. No scleral icterus or conjunctival pallor. 3 cm furuncle of posterior scalp with purulent drainage. There is fluctuance and mild induration. There is mild tenderness to palpation. CV: S1, S2 present Respiratory: No audible wheezes Abdomen: Soft, distended Extremities: Pitting edema bilateral lower extremities Results - Labs 06/03/20 05:16 06/03/20 05:16 Abnormal lab results 06/03/20 06/03/20 06/03/20 Range/Units 05:16 05:16 05:16 MCV 95 H (84-94) fl Lymph % (Auto) 36.0 H (13.4-35.0) % [place] % (Auto) 14.6 H (0.0-7.3) % PT 19.7 H (12.2-14.9) Sec. INR 1.67 H (0.87-1.13) Sodium 135 L (137-145) mmol/L Chloride 95.0 L (98-107) mmol/L Glucose 107 H (75-100) mg/dL Calcium 8.2 L (8.4-10.2) mg/dL Diabetes panel 06/03/20 Range/Units 05:16 Sodium 135 L (137-145) mmol/L Potassium 3.7 (3.6-5.0) mmol/L Chloride 95.0 L (98-107) mmol/L Carbon Dioxide 25 (22-30) mmol/L BUN 13 (9-20) mg/dL Creatinine 0.8 (0.8-1.3) mg/dL Glucose 107 H (75-100) mg/dL Calcium 8.2 L (8.4-10.2) mg/dL Calcium panel 06/03/20 Range/Units 05:16 Calcium 8.2 L (8.4-10.2) mg/dL Pituitary panel 06/03/20 Range/Units 05:16 Sodium 135 L (137-145) mmol/L Potassium 3.7 (3.6-5.0) mmol/L Chloride 95.0 L (98-107) mmol/L Carbon Dioxide 25 (22-30) mmol/L BUN 13 (9-20) mg/dL Creatinine 0.8 (0.8-1.3) mg/dL Glucose 107 H (75-100) mg/dL Calcium 8.2 L (8.4-10.2) mg/dL Adrenal panel 06/03/20 Range/Units 05:16 Sodium 135 L (137-145) mmol/L Potassium 3.7 (3.6-5.0) mmol/L Chloride 95.0 L (98-107) mmol/L Carbon Dioxide 25 (22-30) mmol/L BUN 13 (9-20) mg/dL Creatinine 0.8 (0.8-1.3) mg/dL Glucose 107 H (75-100) mg/dL Calcium 8.2 L (8.4-10.2) mg/dL Assessment and Plan 35-year-old male with abscess of posterior scalp Patient stable. Afebrile. Having spontaneous drainage. Plan: 1. Warm compresses to area - discussed with patient's RN 2. continue abx - on clinda 3. Area is spontaneously draining. Will reeval for incision and drainage in 24 hours if no improvement 4. Daily wound care Thank you for this consultation. Please call with any questions or concerns. Evaluation and treatment of this patient was during the time of the national and state emergency arising from COVID19 coronavirus pandemic. Treatment and procedures performed meet the current and available best practice and guidelines for patient during the COVID pandemic.
--- NOTE | 2020-06-03 15:10 | Event Note ---
Date: 06/03/20 Patient not in room for psychiatric evaluation per consult
[2020-06-03] MEDS: ACETAMINOPHEN 325 MG TAB PO PRN (15:15)
--- NOTE | 2020-06-03 17:09 | Consultation ---
History of Present Illness - Reason for Consult Consult date: 06/03/20 Abnormal LFTs Requesting physician: NEW RICCI - History of Present Illness Mr. Sanchez is a 35 yo BM admitted with a 2 wk hx of CORBIN, LE swelling. He was found to be in CHF with an LVEF = 10-15%. He was also found to have abnormal LFTs, for which we are consulted. He has no hx of liver disease, and denies hx of jaundice or IVDA. He has no significant past medical history and no hx of heart disease or CP or SOB. He has been drinking heavily over the last 3-6 months, with up to 1 pt/d of liquor, as well as using cocaine several x/wk. He has been depressed since losing his mother and aunt recently, in the last few months. He has been having occ N/V, based on his drinking. No abd pain, no GI bleed. Meds reviewed. Past History Past Medical History: No medical history Past Surgical History: No surgical history Social history: lives with family, smoking, alcohol abuse, other (Cocaine, marij uana, methamphetamine abuse) Family history: no significant family history Medications and Allergies Allergies Allergy/AdvReac Type Severity Reaction Status Date / Time No Known Allergies Allergy Unverified 10/01/19 00:28 Home Medications Medication Instructions Recorded Confirmed Last Taken Type No Known Home Medications [No 06/02/20 06/02/20 Unknown History Reported Home Medications] Active Meds: Active Medications Acetaminophen (Acetaminophen 325 Mg Tab) 650 mg PO Q4H PRN PRN Reason: Pain MILD(1-3)/Fever >100.5/MALONE Last Admin: 06/03/20 15:15 Dose: 650 mg Documented by: Carvedilol (Carvedilol 3.125 Mg Tab) 3.125 mg PO BID [facility] Enoxaparin Sodium (Enoxaparin 40 Mg/0.4 Ml Inj) 40 mg SUB-Q QDAY@2200 [facility]; Protocol Last Admin: 06/02/20 22:26 Dose: 40 mg Documented by: Furosemide (Furosemide 40 Mg/4 Ml Inj) 40 mg IV BID@0600,1800 [facility] Last Admin: 06/03/20 12:33 Dose: 40 mg Documented by: Clindamycin HCl (Cleocin 600 Mg/50 Ml) 600 mg in 50 mls @ 100 mls/hr IV Q8H [facility]; Protocol Last Admin: 06/03/20 12:20 Dose: 100 mls/hr Documented by: Milrinone Lactate/Dextrose (Milrinone-D5w 20 Mg/100 Ml) 20 mg in 100 mls @ 6.638 mls/hr IV TITR [facility] Stop: 06/06/20 12:59 Last Admin: 06/03/20 13:18 Dose: 0.375 mcg/kg/min, 9.956 mls/hr Documented by: Magnesium Hydroxide (Magnesium Hydroxide (Mom) Oral Liqd Udc) 30 ml PO Q4H PRN PRN Reason: Constipation Morphine Sulfate (Morphine 2 Mg/1 Ml Inj) 2 mg IV Q5MIN PRN PRN Reason: Chest Pain unrelieved by NTG Last Admin: 06/03/20 03:47 Dose: 2 mg Documented by: Ondansetron HCl (Ondansetron 4 Mg/2 Ml Inj) 4 mg IV Q8H PRN PRN Reason: Nausea And Vomiting Sodium Chloride (Sodium Chloride 0.9% 10 Ml Flush Syringe) 10 ml IV BID [facility] Last Admin: 06/03/20 12:35 Dose: 10 ml Documented by: Sodium Chloride (Sodium Chloride 0.9% 10 Ml Flush Syringe) 10 ml IV PRN PRN PRN Reason: LINE FLUSH Last Admin: 06/02/20 22:34 Dose: 10 ml Documented by: Review of Systems All systems: negative (as per HPI) Exam - Constitutional Vitals: Temp Pulse Resp BP Pulse Ox 87.4 F L 88 18 88/66 98 06/03/20 15:03 06/03/20 15:03 06/03/20 15:03 06/03/20 15:03 06/03/20 15:03 General appearance: Present: mild distress, other (anxious and crying) - EENT Eyes: Present: PERRL, EOM intact ENT: hearing intact - Neck Neck: Present: supple - Respiratory Respiratory effort: normal Respiratory: bilateral: CTA - Cardiovascular Rhythm: regular Heart Sounds: Present: S1 & S2 - Extremities Extremity abnormal: edema (3+) - Abdominal General gastrointestinal: Present: soft, non-tender Results - Labs CBC & Chem 7: 06/03/20 05:16 06/03/20 05:16 Labs: Abnormal lab results 0106/03/20 06/03/20 Range/Units 05:16 05:16 05:16 MCV 95 H (84-94) fl Lymph % (Auto) 36.0 H (13.4-35.0) % [place] % (Auto) 14.6 H (0.0-7.3) % PT 19.7 H (12.2-14.9) Sec. INR 1.67 H (0.87-1.13) Sodium 135 L (137-145) mmol/L Chloride 95.0 L (98-107) mmol/L Glucose 107 H (75-100) mg/dL Calcium 8.2 L (8.4-10.2) mg/dL Assessment and Plan 1. Abnormal transaminases - likely due to congestive hepatopathy. Hepatitis serologies negative. Pattern inconsistent with alcoholic hepatitis, but could be a factor. No evidence of significant decompensation. - quit EtOH - check RUQ U/S - monitor labs, with diuresis
--- NOTE | 2020-06-03 17:11 | Progress Note ---
<AMY MTZ - Last Filed: 06/03/20 17:21> Assessment and Plan Assessment and plan: Acute systolic congestive heart failure -Patient presented with bilateral lower extremity swelling -06/02 proBNP 910.6 -Cardiology consulted, patient recommendations -Cardiology has initiated the patient on Coreg, Aldactone, lisinopril -Milrinone drip 06/03 through 06/06 per cardiology -06/02 echocardiogram shows severe four-chamber dilated cardiomyopathy, global left ventricular systolic function severely decreased, estimated ejection fraction of 10 to 15%, mild concentric LVH, moderate MR, moderate to severe TR, mild pulmonary hypertension, RVSP calculated at 30 mmHg with minimal pericardial effusion. Transaminitis -Presented with LFTs: T bili 1.1, AST 129, ALT 154, alk phos 98 -06/03 hepatitis panel nonreactive -Presented with Serum Alcohol Level of 0.02 -GI consulted, appreciate recommendations for outside -Trend LFTs Depression -Patient admits to self-medication with polysubstance abuse following the loss of his mother and aunt -Patient denies any SI or HI at this time -Psych consulted, appreciate recommendations Skin abscess -WOCN and general surgery consulted -Clindamycin IV -Wound care per nursing -Possible incision and drainage with surgery EtoH abuse/cocaine abuse/marijuana abuse -Patient has a history of drinking six 6 pack/day of beer with 1 pint of hard liquor for "years" -CIWA protocol -Aspiration and seizure precautions -Supportive care DVT prophylaxis -SCDs to bilateral lower extremities while in bed -Lovenox subcu -GI prophylaxis History Interval history: This is a 35-year-old man with history of polysubstance and alcohol abuse who presented to the emergency department on 06/02 with complaints of bilateral lower extremity edema, scrotal edema, abdominal distention, orthopnea, nonproductive cough and difficulty breathing over the past several months which worsened over the past 2 weeks. Patient indicated that he has increased his substance abuse after personal losses but denies any homicidal or suicidal ideations. Work-up in the emergency department included a CXR which showed mild to moderate interstitial edema, elevated LFTs, slight hyponatremia, elevated proBNP at 910 and UDS positive for benzodiazepine, cocaine and marijuana with a serum plasma alcohol level of 0.02. Patient was also noted to have an abscess the back of his head. Patient was admitted to the hospitalist service for acute congestive heart failure, transaminitis and skin abscess. Surgery, WOCN, psych, cardiology and gastroenterology were consulted. 06/03: This morning patient underwent an echocardiogram and at the time of my exam complains of "peeing a lot." Patient admits to polysubstance abuse and was initiated on Coreg, lisinopril, Aldactone and milrinone by cardiology in addition to Lasix 40 twice daily. This afternoon his systolic blood pressure was noted to be 88, cardiology was made aware and his blood pressure medications were adjusted. Hospitalist Physical - Constitutional Vitals: Temp Pulse Resp BP Pulse Ox 87.4 F L 88 18 88/66 98 06/03/20 15:03 06/03/20 15:03 06/03/20 15:03 06/03/20 15:03 06/03/20 15:03 General appearance: Present: mild distress - EENT Eyes: Present: PERRL, EOM intact ENT: hearing intact, clear oral mucosa, dentition normal - Neck Neck: Present: normal ROM - Respiratory Respiratory effort: normal Respiratory: bilateral: diminished - Cardiovascular Rhythm: regular Heart Sounds: Present: S1 & S2. Absent: systolic murmur, diastolic murmur - Extremities Extremities: pulses intact, pulses symmetrical, normal temperature, normal color, Full ROM Extremity abnormal: edema - Peripheral Assessment Bilateral Lower Extremity Edema Type: Pitting Edema Degree: 3+ Capillary Refill: < 3 seconds Skin Temperature: Warm Scrotal Edema Type: Non-pitting Skin Temperature: Warm Peripheral Pulses: within normal limits - Abdominal General gastrointestinal: soft, non-tender, distended, normal bowel sounds - Integumentary Integumentary: Present: warm, dry - Psychiatric Psychiatric: cooperative - Neurologic Neurologic: CNII-XII intact, no focal deficits, moves all extremities - Allied Health Allied health notes reviewed: nursing HEART Score - HEART Score Troponin: Troponin T < 0.010 ng/mL (0.00-0.029) 06/02/20 12:27 Results - Labs CBC & Chem 7: 06/03/20 05:16 06/03/20 05:16 Labs: Laboratory Last Values WBC 4.8 K/mm3 (4.5-11.0) 06/03/20 05:16 RBC 3.80 M/mm3 (3.65-5.03) 06/03/20 05:16 Hgb 11.9 gm/dl (11.8-15.2) 06/03/20 05:16 Hct 36.3 % (35.5-45.6) 06/03/20 05:16 MCV 95 fl (84-94) H 06/03/20 05:16 MCH 31 pg (28-32) 06/03/20 05:16 MCHC 33 % (32-34) 06/03/20 05:16 RDW 13.5 % (13.2-15.2) 06/03/20 05:16 Plt Count 177 K/mm3 (140-440) 06/03/20 05:16 Lymph % (Auto) 36.0 % (13.4-35.0) H 06/03/20 05:16 [place] % (Auto) 14.6 % (0.0-7.3) H 06/03/20 05:16 Eos % (Auto) 0.8 % (0.0-4.3) 06/03/20 05:16 Baso % (Auto) 1.0 % (0.0-1.8) 06/03/20 05:16 Lymph # (Auto) 1.7 K/mm3 (1.2-5.4) 06/03/20 05:16 [place] # (Auto) 0.7 K/mm3 (0.0-0.8) 06/03/20 05:16 Eos # (Auto) 0.0 K/mm3 (0.0-0.4) 06/03/20 05:16 Baso # (Auto) 0.0 K/mm3 (0.0-0.1) 06/03/20 05:16 Seg Neutrophils % 47.6 % (40.0-70.0) 06/03/20 05:16 Seg Neutrophils # 2.3 K/mm3 (1.8-7.7) 06/03/20 05:16 PT 19.7 Sec. (12.2-14.9) H 06/03/20 05:16 INR 1.67 (0.87-1.13) H 06/03/20 05:16 Sodium 135 mmol/L (137-145) L 06/03/20 05:16 Potassium 3.7 mmol/L (3.6-5.0) 06/03/20 05:16 Chloride 95.0 mmol/L (98-107) L 06/03/20 05:16 Carbon Dioxide 25 mmol/L (22-30) 06/03/20 05:16 Anion Gap 19 mmol/L 06/03/20 05:16 BUN 13 mg/dL (9-20) 06/03/20 05:16 Creatinine 0.8 mg/dL (0.8-1.3) 06/03/20 05:16 Estimated GFR > 60 ml/min 06/03/20 05:16 BUN/Creatinine Ratio 16 % 06/03/20 05:16 Glucose 107 mg/dL (75-100) H 06/03/20 05:16 POC Glucose 95 mg/dL (70-105) 06/03/20 15:02 Calcium 8.2 mg/dL (8.4-10.2) L 06/03/20 05:16 Total Bilirubin 1.10 mg/dL (0.1-1.2) 06/02/20 12:27 AST 129 units/L (5-40) H 06/02/20 12:27 ALT 154 units/L (7-56) H 06/02/20 12:27 Alkaline Phosphatase 98 units/L (35-129) 06/02/20 12:27 Troponin T < 0.010 ng/mL (0.00-0.029) 06/02/20 12:27 NT-Pro-B Natriuret Pep 910.6 pg/mL (0-450) H 06/02/20 12:27 Total Protein 7.1 g/dL (6.3-8.2) 06/02/20 12:27 Albumin 3.3 g/dL (3.9-5) L 06/02/20 12:27 Albumin/Globulin Ratio 0.9 % 06/02/20 12:27 TSH 1.690 mlU/mL (0.270-4.200) 06/02/20 12:27 Urine Color Edyta (Yellow) 06/02/20 10:40 Urine Turbidity Hazy (Clear) 06/02/20 10:40 Urine pH 5.0 (5.0-7.0) 06/02/20 10:40 Ur Specific [place] 1.026 (1.003-1.030) 06/02/20 10:40 Urine Protein 100 mg/dl mg/dL (Negative) 06/02/20 10:40 Urine Glucose (UA) Neg mg/dL (Negative) 06/02/20 10:40 Urine Ketones Neg mg/dL (Negative) 06/02/20 10:40 Urine Blood Neg (Negative) 06/02/20 10:40 Urine Nitrite Neg (Negative) 06/02/20 10:40 Urine Bilirubin Sm (Negative) 06/02/20 10:40 Urine Ictotest Positive (Negative) 06/02/20 10:40 Urine Urobilinogen 4.0 mg/dL (<2.0) 06/02/20 10:40 Ur Leukocyte Esterase Neg (Negative) 06/02/20 10:40 Urine WBC (Auto) 2.0 /HPF (0.0-6.0) 06/02/20 10:40 Urine RBC (Auto) 1.0 /HPF (0.0-6.0) 06/02/20 10:40 U Epithel Cells (Auto) < 1.0 /HPF (0-13.0) 06/02/20 10:40 Urine Mucus 2+ /HPF 06/02/20 10:40 Salicylates 1.7 mg/dL (2.8-20.0) L 06/02/20 12:27 Urine Opiates Screen Negative 06/02/20 10:40 Urine Methadone Screen Negative 06/02/20 10:40 Acetaminophen 5.0 ug/mL (10.0-30.0) L 06/02/20 12:27 Ur Barbiturates Screen Negative 06/02/20 10:40 Ur Phencyclidine Scrn Negative 06/02/20 10:40 Ur Amphetamines Screen Negative 06/02/20 10:40 U Benzodiazepines Scrn Presumptive positive 06/02/20 10:40 Urine Cocaine Screen Presumptive positive 06/02/20 10:40 U Marijuana (THC) Screen Presumptive positive 06/02/20 10:40 Drugs of Abuse Note Disclamer 06/02/20 10:40 Plasma/Serum Alcohol 0.02 % (0-0.07) 06/02/20 12:27 Hepatitis A IgM Ab Non-reactive (NonReactive) 06/03/20 05:16 Hep Bs Antigen Non-reactive (Negative) 06/03/20 05:16 Hep B Core IgM Ab Non-reactive (NonReactive) 06/03/20 05:16 Hepatitis C Antibody Non-reactive (NonReactive) 06/03/20 05:16 - Diagnostic Impressions Diagnostic Impressions: Echocardiogram 06/02/20 15:08 Transthoracic Echocardiogram Indication: SOB; Bilateral lower extremity swelling BP: 78/61 HR: 110 Conclusions *Severe, 4-chamber dilated cardiomyopathy. *Global left ventricular systolic function is severely decreased. *The estimated ejection fraction is 10-15%. *Mild concentric left ventricular hypertrophy is observed. *There is moderate mitral regurgitation. *There is moderate to severe tricuspid regurgitation. *There is evidence of mild pulmonary hypertension. *The right ventricular systolic pressure is calculated at 33 mmHg. *There is a minimial pericardial effusion. Findings Left Ventricle: The left ventricular chamber size is severely dilated. Mild concentric left ventricular hypertrophy is observed. Global left ventricular systolic function is severely decreased. The estimated ejection fraction is 10-15%. Left Atrium: The left atrium is moderate to severely dilated. Right Ventricle: The right ventricle is moderate to severely dilated. The right ventricular global systolic function is severely reduced. Right Atrium: The right atrial cavity size is severely dilated. Aortic Valve: The aortic valve is trileaflet. The aortic valve leaflets are mildly thickened. There is no evidence of aortic regurgitation. There is no evidence of aortic stenosis. Mitral Valve: The mitral valve leaflets are mildly thickened. There is moderate mitral regurgitation. Tricuspid Valve: The tricuspid valve leaflets are normal. There is moderate to severe tricuspid regurgitation. The right ventricular systolic pressure is calculated at 33 mmHg. There is evidence of mild pulmonary hypertension. Pulmonic Valve: There is mild pulmonic regurgitation. Pericardium: There is a minimial pericardial effusion. Aorta: There is no dilatation of the ascending aorta. There is no dilatation of the aortic root. Venous: The inferior vena cava is dilated. Measurements Chambers 2D Name Value Normal Range IVSd (2D) 0.87 cm (0.6 - 1.1) LVPWd (2D) 0.84 cm (0.6 - 1.1) LVIDd (2D) 6.25 cm (3.7 - 5.6) LVIDs (2D) 5.67 cm (2 - 3.8) LV FS (2D) 9.19 % - EF Teichholz (2D) 19.78 % - Ao root diameter (2D) 2.14 cm (2 - 3.7) Volumes/Mass Name Value Normal Range LA ESV SP 4CH (A/L) 59.45 ml - LA ESV SP 2CH (A/L) 89.36 ml - LA ESV BP (A/L) 72.93 ml - LA ESV BP (A/L) index 37.98 ml/m2 - LA ESV SP 4CH (MOD) 56.28 ml - LA ESV SP 2CH (MOD) 87.37 ml - LA ESV BP (MOD) 69 ml - LA ESV BP (MOD) index 35.94 ml/m2 - Aortic Valve Name Value Normal Range AV Vmax 0.95 m/sec - AV VTI 13.74 cm - AV peak gradient 3.59 mmHg - AV mean gradient 2.25 mmHg - LVOT diameter 2.1 cm - LVOT Vmax 0.79 m/sec - LVOT VTI 12.16 cm - LVOT peak gradient 2.5 mmHg - LVOT mean gradient 1.57 mmHg - SV LVOT 41.93 ml - CHEN (continuity Vmax) 2.87 cm2 - CHEN (continuity VTI) 3.05 cm2 - Ascending Ao 2.78 cm - Mitral Valve Name Value Normal Range MV Vmax 1.02 m/sec - MV VTI 11.35 cm - MV peak gradient 4.16 mmHg - MV mean gradient 2.15 mmHg - MV PHT 22.04 msec - MR Vmax 4.28 m/sec - MVA (PHT) 9.98 cm2 - MVA (continuity VTI) 3.69 cm2 - Tricuspid Valve Name Value Normal Range TR Vmax 2.51 m/sec - TR peak gradient 25 mmHg - RAP 8 mmHg - RVSP 33 mmHg - IVC diameter 3.11 cm (1.2 - 2.3) Pulmonic Valve/Qp:Qs Name Value Normal Range PV Vmax 0.67 m/sec - PV peak gradient 1.8 mmHg - UT end-diastolic Vmax 1.84 m/sec - PV acceleration time 79.92 msec - Swan/IV: Voiding Method Toilet IV Catheter Type [Left Forearm Peripheral IV ] Active Medications - Current Medications Current Medications: Generic Name Dose Route Start Last Admin Trade Name Freq PRN Reason Stop Dose Admin Acetaminophen 650 mg 06/02/20 15:07 06/03/20 15:15 Acetaminophen 325 Mg Tab PO 650 mg Q4H PRN Administration Pain MILD(1-3)/Fever >100.5/MALONE Carvedilol 3.125 mg 06/03/20 22:00 Carvedilol 3.125 Mg Tab PO BID NADEEM Enoxaparin Sodium 40 mg 06/02/20 22:00 06/02/20 22:26 Enoxaparin 40 Mg/0.4 Ml Inj SUB-Q 40 mg QDAY@2200 NADEEM Administration Protocol Furosemide 40 mg 06/02/20 18:00 06/03/20 12:33 Furosemide 40 Mg/4 Ml Inj IV 40 mg BID@0600,1800 NADEEM Administration Clindamycin HCl 600 mg in 50 mls @ 100 mls/hr 06/02/20 16:00 06/03/20 12:20 Cleocin 600 Mg/50 Ml IV 100 mls/hr Q8H NADEEM Administration Protocol Milrinone Lactate/Dextrose 20 mg in 100 mls @ 6.638 mls/hr 06/03/20 13:00 06/03/20 13:18 Milrinone-D5w 20 Mg/100 Ml IV 06/06/20 12:59 0.375 mcg/kg/min TITR NADEEM 9.956 mls/hr Administration 0.25 MCG/KG/MIN Magnesium Hydroxide 30 ml 06/02/20 15:07 Magnesium Hydroxide (Mom) Oral Liqd Udc PO Q4H PRN Constipation Morphine Sulfate 2 mg 06/02/20 15:07 06/03/20 03:47 Morphine 2 Mg/1 Ml Inj IV 2 mg Q5MIN PRN Administration Chest Pain unrelieved by NTG Ondansetron HCl 4 mg 06/02/20 15:07 Ondansetron 4 Mg/2 Ml Inj IV Q8H PRN Nausea And Vomiting Sodium Chloride 10 ml 06/02/20 22:00 06/03/20 12:35 Sodium Chloride 0.9% 10 Ml Flush Syringe IV 10 ml BID NADEEM Administration Sodium Chloride 10 ml 06/02/20 15:07 06/02/20 22:34 Sodium Chloride 0.9% 10 Ml Flush Syringe IV 10 ml PRN PRN Administration LINE FLUSH <NANCY MARKS - Last Filed: 06/03/20 18:09> Assessment and Plan Assessment and plan: Agree with assessment and plan as outlined above. I have seen and examined the patient myself, patient with severe heart failure and possibly cirrhosis due to patient's severe alcohol abuse. We will continue to follow patient, patient's blood pressure is on the low side, cardiac medications adjusted per cardiology, appreciate recommendations from cardiology and GI. Hospitalist Physical - Constitutional Vitals: Temp Pulse Resp BP Pulse Ox 97.4 F L 95 H 18 88/66 100 06/03/20 15:06 06/03/20 15:06 06/03/20 15:06 06/03/20 15:06 06/03/20 15:06 HEART Score - HEART Score Troponin: Troponin T < 0.010 ng/mL (0.00-0.029) 06/02/20 12:27 Results - Labs CBC & Chem 7: 06/03/20 05:16 06/03/20 05:16 Labs: Laboratory Last Values WBC 4.8 K/mm3 (4.5-11.0) 06/03/20 05:16 RBC 3.80 M/mm3 (3.65-5.03) 06/03/20 05:16 Hgb 11.9 gm/dl (11.8-15.2) 06/03/20 05:16 Hct 36.3 % (35.5-45.6) 06/03/20 05:16 MCV 95 fl (84-94) H 06/03/20 05:16 MCH 31 pg (28-32) 06/03/20 05:16 MCHC 33 % (32-34) 06/03/20 05:16 RDW 13.5 % (13.2-15.2) 06/03/20 05:16 Plt Count 177 K/mm3 (140-440) 06/03/20 05:16 Lymph % (Auto) 36.0 % (13.4-35.0) H 06/03/20 05:16 [place] % (Auto) 14.6 % (0.0-7.3) H 06/03/20 05:16 Eos % (Auto) 0.8 % (0.0-4.3) 06/03/20 05:16 Baso % (Auto) 1.0 % (0.0-1.8) 06/03/20 05:16 Lymph # (Auto) 1.7 K/mm3 (1.2-5.4) 06/03/20 05:16 [place] # (Auto) 0.7 K/mm3 (0.0-0.8) 06/03/20 05:16 Eos # (Auto) 0.0 K/mm3 (0.0-0.4) 06/03/20 05:16 Baso # (Auto) 0.0 K/mm3 (0.0-0.1) 06/03/20 05:16 Seg Neutrophils % 47.6 % (40.0-70.0) 06/03/20 05:16 Seg Neutrophils # 2.3 K/mm3 (1.8-7.7) 06/03/20 05:16 PT 19.7 Sec. (12.2-14.9) H 06/03/20 05:16 INR 1.67 (0.87-1.13) H 06/03/20 05:16 Sodium 135 mmol/L (137-145) L 06/03/20 05:16 Potassium 3.7 mmol/L (3.6-5.0) 06/03/20 05:16 Chloride 95.0 mmol/L (98-107) L 06/03/20 05:16 Carbon Dioxide 25 mmol/L (22-30) 06/03/20 05:16 Anion Gap 19 mmol/L 06/03/20 05:16 BUN 13 mg/dL (9-20) 06/03/20 05:16 Creatinine 0.8 mg/dL (0.8-1.3) 06/03/20 05:16 Estimated GFR > 60 ml/min 06/03/20 05:16 BUN/Creatinine Ratio 16 % 06/03/20 05:16 Glucose 107 mg/dL (75-100) H 06/03/20 05:16 POC Glucose 95 mg/dL (70-105) 06/03/20 15:02 Calcium 8.2 mg/dL (8.4-10.2) L 06/03/20 05:16 Total Bilirubin 1.10 mg/dL (0.1-1.2) 06/02/20 12:27 AST 129 units/L (5-40) H 06/02/20 12:27 ALT 154 units/L (7-56) H 06/02/20 12:27 Alkaline Phosphatase 98 units/L (35-129) 06/02/20 12:27 Troponin T < 0.010 ng/mL (0.00-0.029) 06/02/20 12:27 NT-Pro-B Natriuret Pep 910.6 pg/mL (0-450) H 06/02/20 12: Total Protein 7.1 g/dL (6.3-8.2) 06/02/20 12: Albumin 3.3 g/dL (3.9-5) L 06/02/20 12: Albumin/Globulin Ratio 0.9 % 06/02/20 12:27 TSH 1.690 mlU/mL (0.270-4.200) 06/02/20 12:27 Urine Color Edyta (Yellow) 06/02/20 10:40 Urine Turbidity Hazy (Clear) 06/02/20 10:40 Urine pH 5.0 (5.0-7.0) 06/02/20 10:40 Ur Specific [place] 1.026 (1.003-1.030) 06/02/20 10:40 Urine Protein 100 mg/dl mg/dL (Negative) 06/02/20 10:40 Urine Glucose (UA) Neg mg/dL (Negative) 06/02/20 10:40 Urine Ketones Neg mg/dL (Negative) 06/02/20 10:40 Urine Blood Neg (Negative) 06/02/20 10:40 Urine Nitrite Neg (Negative) 06/02/20 10:40 Urine Bilirubin Sm (Negative) 06/02/20 10:40 Urine Ictotest Positive (Negative) 06/02/20 10:40 Urine Urobilinogen 4.0 mg/dL (<2.0) 06/02/20 10:40 Ur Leukocyte Esterase Neg (Negative) 06/02/20 10:40 Urine WBC (Auto) 2.0 /HPF (0.0-6.0) 06/02/20 10:40 Urine RBC (Auto) 1.0 /HPF (0.0-6.0) 06/02/20 10:40 U Epithel Cells (Auto) < 1.0 /HPF (0-13.0) 06/02/20 10:40 Urine Mucus 2+ /HPF 06/02/20 10:40 Salicylates 1.7 mg/dL (2.8-20.0) L 06/02/20 12:27 Urine Opiates Screen Negative 06/02/20 10:40 Urine Methadone Screen Negative 06/02/20 10:40 Acetaminophen 5.0 ug/mL (10.0-30.0) L 06/02/20 12:27 Ur Barbiturates Screen Negative 06/02/20 10:40 Ur Phencyclidine Scrn Negative 06/02/20 10:40 Ur Amphetamines Screen Negative 06/02/20 10:40 U Benzodiazepines Scrn Presumptive positive 06/02/20 10:40 Urine Cocaine Screen Presumptive positive 06/02/20 10:40 U Marijuana (THC) Screen Presumptive positive 06/02/20 10:40 Drugs of Abuse Note Disclamer 06/02/20 10:40 Plasma/Serum Alcohol 0.02 % (0-0.07) 06/02/20 12:27 Hepatitis A IgM Ab Non-reactive (NonReactive) 06/03/20 05:16 Hep Bs Antigen Non-reactive (Negative) 06/03/20 05:16 Hep B Core IgM Ab Non-reactive (NonReactive) 06/03/20 05:16 Hepatitis C Antibody Non-reactive (NonReactive) 06/03/20 05:16 - Diagnostic Impressions Diagnostic Impressions: Echocardiogram 06/02/20 15:08 Transthoracic Echocardiogram Indication: SOB; Bilateral lower extremity swelling BP: 78/61 HR: 110 Conclusions *Severe, 4-chamber dilated cardiomyopathy. *Global left ventricular systolic function is severely decreased. *The estimated ejection fraction is 10-15%. *Mild concentric left ventricular hypertrophy is observed. *There is moderate mitral regurgitation. *There is moderate to severe tricuspid regurgitation. *There is evidence of mild pulmonary hypertension. *The right ventricular systolic pressure is calculated at 33 mmHg. *There is a minimial pericardial effusion. Findings Left Ventricle: The left ventricular chamber size is severely dilated. Mild concentric left ventricular hypertrophy is observed. Global left ventricular systolic function is severely decreased. The estimated ejection fraction is 10-15%. Left Atrium: The left atrium is moderate to severely dilated. Right Ventricle: The right ventricle is moderate to severely dilated. The right ventricular global systolic function is severely reduced. Right Atrium: The right atrial cavity size is severely dilated. Aortic Valve: The aortic valve is trileaflet. The aortic valve leaflets are mildly thickened. There is no evidence of aortic regurgitation. There is no evidence of aortic stenosis. Mitral Valve: The mitral valve leaflets are mildly thickened. There is moderate mitral regurgitation. Tricuspid Valve: The tricuspid valve leaflets are normal. There is moderate to severe tricuspid regurgitation. The right ventricular systolic pressure is calculated at 33 mmHg. There is evidence of mild pulmonary hypertension. Pulmonic Valve: There is mild pulmonic regurgitation. Pericardium: There is a minimial pericardial effusion. Aorta: There is no dilatation of the ascending aorta. There is no dilatation of the aortic root. Venous: The inferior vena cava is dilated. Measurements Chambers 2D Name Value Normal Range IVSd (2D) 0.87 cm (0.6 - 1.1) LVPWd (2D) 0.84 cm (0.6 - 1.1) LVIDd (2D) 6.25 cm (3.7 - 5.6) LVIDs (2D) 5.67 cm (2 - 3.8) LV FS (2D) 9.19 % - EF Teichholz (2D) 19.78 % - Ao root diameter (2D) 2.14 cm (2 - 3.7) Volumes/Mass Name Value Normal Range LA ESV SP 4CH (A/L) 59.45 ml - LA ESV SP 2CH (A/L) 89.36 ml - LA ESV BP (A/L) 72.93 ml - LA ESV BP (A/L) index 37.98 ml/m2 - LA ESV SP 4CH (MOD) 56.28 ml - LA ESV SP 2CH (MOD) 87.37 ml - LA ESV BP (MOD) 69 ml - LA ESV BP (MOD) index 35.94 ml/m2 - Aortic Valve Name Value Normal Range AV Vmax 0.95 m/sec - AV VTI 13.74 cm - AV peak gradient 3.59 mmHg - AV mean gradient 2.25 mmHg - LVOT diameter 2.1 cm - LVOT Vmax 0.79 m/sec - LVOT VTI 12.16 cm - LVOT peak gradient 2.5 mmHg - LVOT mean gradient 1.57 mmHg - SV LVOT 41.93 ml - CHEN (continuity Vmax) 2.87 cm2 - CHEN (continuity VTI) 3.05 cm2 - Ascending Ao 2.78 cm - Mitral Valve Name Value Normal Range MV Vmax 1.02 m/sec - MV VTI 11.35 cm - MV peak gradient 4.16 mmHg - MV mean gradient 2.15 mmHg - MV PHT 22.04 msec - MR Vmax 4.28 m/sec - MVA (PHT) 9.98 cm2 - MVA (continuity VTI) 3.69 cm2 - Tricuspid Valve Name Value Normal Range TR Vmax 2.51 m/sec - TR peak gradient 25 mmHg - RAP 8 mmHg - RVSP 33 mmHg - IVC diameter 3.11 cm (1.2 - 2.3) Pulmonic Valve/Qp:Qs Name Value Normal Range PV Vmax 0.67 m/sec - PV peak gradient 1.8 mmHg - UT end-diastolic Vmax 1.84 m/sec - PV acceleration time 79.92 msec - Swan/IV: Voiding Method Toilet IV Catheter Type [Left Forearm Peripheral IV ] Active Medications - Current Medications Current Medications: Generic Name Dose Route Start Last Admin Trade Name Freq PRN Reason Stop Dose Admin Acetaminophen 650 mg 06/02/20 15:07 06/03/20 15:15 Acetaminophen 325 Mg Tab PO 650 mg Q4H PRN Administration Pain MILD(1-3)/Fever >100.5/MALONE Carvedilol 3.125 mg 06/03/20 22:00 Carvedilol 3.125 Mg Tab PO BID NADEEM Enoxaparin Sodium 40 mg 06/02/20 22:00 06/02/20 22:26 Enoxaparin 40 Mg/0.4 Ml Inj SUB-Q 40 mg QDAY@2200 NADEEM Administration Protocol Furosemide 40 mg 06/02/20 18:00 06/03/20 12:33 Furosemide 40 Mg/4 Ml Inj IV 40 mg BID@0600,1800 NADEEM Administration Clindamycin HCl 600 mg in 50 mls @ 100 mls/hr 06/02/20 16:00 06/03/20 12:20 Cleocin 600 Mg/50 Ml IV 100 mls/hr Q8H NADEEM Administration Protocol Milrinone Lactate/Dextrose 20 mg in 100 mls @ 6.638 mls/hr 06/03/20 13:00 06/03/20 13:18 Milrinone-D5w 20 Mg/100 Ml IV 06/06/20 12:59 0.375 mcg/kg/min TITR NADEEM 9.956 mls/hr Administration 0.25 MCG/KG/MIN Magnesium Hydroxide 30 ml 06/02/20 15:07 Magnesium Hydroxide (Mom) Oral Liqd Udc PO Q4H PRN Constipation Morphine Sulfate 2 mg 06/02/20 15:07 06/03/20 03:47 Morphine 2 Mg/1 Ml Inj IV 2 mg Q5MIN PRN Administration Chest Pain unrelieved by NTG Ondansetron HCl 4 mg 06/02/20 15:07 Ondansetron 4 Mg/2 Ml Inj IV Q8H PRN Nausea And Vomiting Sodium Chloride 10 ml 06/02/20 22:00 06/03/20 12:35 Sodium Chloride 0.9% 10 Ml Flush Syringe IV 10 ml BID NADEEM Administration Sodium Chloride 10 ml 06/02/20 15:07 06/02/20 22:34 Sodium Chloride 0.9% 10 Ml Flush Syringe IV 10 ml PRN PRN Administration LINE FLUSH
[2020-06-03] MEDS: ENOXAPARIN 40 MG/0.4 ML INJ SUB-Q SCH (21:16)
[2020-06-03] MEDS: carvediloL 3.125 MG TAB PO SCH (21:17)
[2020-06-04] MEDS: CLINDAMYCIN 600 MG/50 mL 600 MG/50 ML BAG IV SCH (01:21)
[2020-06-04] MEDS: MILRINONE-D5W 20 MG/100 ML 20 MG/100 ML BAG IV SCH ×2 (05:35→20:29)
[2020-06-04] MEDS: FUROSEMIDE 40 MG/4 ML INJ IV SCH ×2 (05:37→18:56)
[2020-06-04 06:11] LABS: Alanine Aminotransferase 95 units/L (7-56); Albumin 2.9 g/dL (3.9-5); BUN/Creatinine Ratio 17; Blood Urea Nitrogen 15 mg/dL (9-20); Calcium 8.3 mg/dL (8.4-10.2); Hemolysis Index 9
[2020-06-04] MEDS ORDERED: POTASSIUM CHLORIDE ER 20 MEQ TAB PO NR (07:55)
--- NOTE | 2020-06-04 09:43 | Consultation ---
History of Present Illness - Reason for Consult Consult date: 06/04/20 Reason for consult: depression - History of Present Psychiatric Illness Onel Sanchez is a 35y/o male patient who was admitted to the hospital because he states he has leg swelling, and back pain. The patient also states that he was drinking a 6 pack and 1/2 pint of vodka daily and using cocaine and THC. He says he smokes a pack of cigarets a day. He says he's been depressed and not sleeping. He says he lost his mom and his aunt not long ago. The patient denies SI/HI or hallucinations of any kind. He also denies any past attempts of SI or being on any psychiatric medications. PAST PSYCHIATRIC HISTORY: Diagnoses: Denies Suicide attempts or Self-harm behavior: Denies Prior psychiatric hospitalizations: Denies Substance Abuse history: Marijuana, cocaine, etoh, TCH Previous psychiatric medications tried: Denies Outpatient treatment: None reported PAST MEDICAL HISTORY: None reported Family Psychiatric History: None reported or documented SOCIAL HISTORY Marital Status: engaged Living Arrangements: With fiance in hotel Employment Status: Unemployed Access to guns/weapons: None reported Education: 12th grade History of Abuse: Denies Legal History: Denies REVIEW OF SYSTEMS Constitutional: Negative for weight loss ENT: Negative for stridor Respiratory: Negative for cough or hemoptysis All other systems reviewed and are negative MENTAL STATUS EXAMINATION General Appearance and Behavior: Age appropriate, poor hygiene, not wearing appropriate clothes, good eye contact, cooperative polite with questioning. Cooperation: Participating/engaged Psychomotor Behavior: Psychomotor normal Mood: Depressed Affect and affective range: congruent with stated mood Thought Process: Goal directed Thought Content: None Speech: Normal tone and pace Suicidal Ideation: Denies SI Homicidal Ideation: Denies HI Impulse Control: Limited Insight and Judgment: Limited insight and judgment Memory: Normal Attention: Normal Orientation: Alert, oriented Assessment and Plan (1)Major Depressive Disorder (2)Cocaine Dependence (3)Alcohol Dependence Current Visit: Yes Status: Acute Treatment Plan Agree with [facility] Start Folic acid 1mg po daily Start Multivit 1 tab daily Start Nicotine patch 21mg daily Start Trazodone 50mg po qhs Start Zoloft 25mg po qd Sitter: Defer to primary Medical: Per primary Disposition: Do not recommend acute inpatient treatment. Will sign off. Thank you for this consult. Case staffed with Dr Nava. Medications and Allergies Allergies Allergy/AdvReac Type Severity Reaction Status Date / Time No Known Allergies Allergy Unverified 10/01/19 00:28 Home Medications Medication Instructions Recorded Confirmed Last Taken Type No Known Home Medications [No 06/02/20 06/02/20 Unknown History Reported Home Medications] Active Meds: Active Medications Acetaminophen (Acetaminophen 325 Mg Tab) 650 mg PO Q4H PRN PRN Reason: Pain MILD(1-3)/Fever >100.5/MALONE Last Admin: 06/03/20 15:15 Dose: 650 mg Documented by: Carvedilol (Carvedilol 3.125 Mg Tab) 3.125 mg PO BID [facility] Last Admin: 06/03/20 21:17 Dose: 3.125 mg Documented by: Enoxaparin Sodium (Enoxaparin 40 Mg/0.4 Ml Inj) 40 mg SUB-Q QDAY@2200 NADEEM; Protocol Last Admin: 06/03/20 21:16 Dose: 40 mg Documented by: Furosemide (Furosemide 40 Mg/4 Ml Inj) 40 mg IV BID@0600,1800 NADEEM Last Admin: 06/04/20 05:37 Dose: 40 mg Documented by: Clindamycin HCl (Cleocin 600 Mg/50 Ml) 600 mg in 50 mls @ 100 mls/hr IV Q8H NADEEM; Protocol Last Admin: 06/04/20 01:21 Dose: 100 mls/hr Documented by: Milrinone Lactate/Dextrose (Milrinone-D5w 20 Mg/100 Ml) 20 mg in 100 mls @ 6.638 mls/hr IV TITR NADEEM Stop: 06/06/20 12:59 Last Admin: 06/04/20 05:35 Dose: 0.375 mcg/kg/min, 9.956 mls/hr Documented by: Magnesium Hydroxide (Magnesium Hydroxide (Mom) Oral Liqd Udc) 30 ml PO Q4H PRN PRN Reason: Constipation Morphine Sulfate (Morphine 2 Mg/1 Ml Inj) 2 mg IV Q5MIN PRN PRN Reason: Chest Pain unrelieved by NTG Last Admin: 06/03/20 03:47 Dose: 2 mg Documented by: Ondansetron HCl (Ondansetron 4 Mg/2 Ml Inj) 4 mg IV Q8H PRN PRN Reason: Nausea And Vomiting Potassium Chloride (Potassium Chloride Er 20 Meq Tab) 40 meq PO ONCE NR Stop: 06/04/20 10:00 Sodium Chloride (Sodium Chloride 0.9% 10 Ml Flush Syringe) 10 ml IV BID NADEEM Last Admin: 06/03/20 21:17 Dose: 10 ml Documented by: Sodium Chloride (Sodium Chloride 0.9% 10 Ml Flush Syringe) 10 ml IV PRN PRN PRN Reason: LINE FLUSH Last Admin: 06/04/20 05:38 Dose: 10 ml Documented by: Mental Status Exam - Vital signs Last Vital Signs Temp 98.6 F 06/04/20 04:24 Pulse 101 H 06/04/20 04:24 Resp 18 06/04/20 04:24 BP 92/48 06/04/20 04:24 Pulse Ox 98 06/04/20 04:24 Results Result Diagrams: 06/03/20 05:16 06/04/20 05:35 Abnormal lab results 06/04/20 Range/Units 05:35 Sodium 132 L (137-145) mmol/L Potassium 3.4 L (3.6-5.0) mmol/L Chloride 96.7 L (98-107) mmol/L Glucose 123 H (75-100) mg/dL Calcium 8.3 L (8.4-10.2) mg/dL AST 66 H (5-40) units/L ALT 95 H (7-56) units/L Albumin 2.9 L (3.9-5) g/dL All other labs normal.
[2020-06-04] MEDS ORDERED: LIDOCAINE (1%) 10 MG/1 ML VIAL 20 ML MDV INFILTRATI NR (10:29)
[2020-06-04] MEDS: SERTRALINE 25 MG TAB PO SCH (11:16)
[2020-06-04] MEDS: FOLIC ACID 1 MG TAB PO SCH (11:16)
[2020-06-04] MEDS: NICOTINE 21 MG/24 HR PATCH TD SCH (11:16)
[2020-06-04] MEDS: MULTIVITAMINS ,THERAPEUTIC TAB PO SCH (11:16)
[2020-06-04] MEDS: carvediloL 3.125 MG TAB PO SCH ×2 (11:16→21:39)
--- NOTE | 2020-06-04 11:51 | Progress Note ---
Assessment and Plan Acute systolic heart failure Echo: 4 chamber dilated cardiomyopathy, LVEF 10-15%. Duration is uncertain. Elevated liver enzymes Poly substance abuse Recommendations: Daily weight and strict I's & O's. Advised dietary restrictions. Continue aggressive medical management for acute systolic heart failure including a trial of IV milrinone. Further cardiac evaluation will depend on clinical course. Subjective Date of service: 06/04/20 Interval history: IV milrinone dosage decreased due to borderline low BP readings. No cardiac events reported. Objective Vital Signs Temp Pulse Resp BP BP Pulse Ox 06/04/20 04:24 98.6 F 101 H 18 92/48 98 06/03/20 22:00 105 H 06/03/20 21:17 105 H 89/61 06/03/20 20:21 105 H 89/61 97 06/03/20 15:06 97.4 F L 95 H 18 88/66 100 06/03/20 15:03 87.4 F L 88 18 66 98 06/03/20 14:00 93 H 06/03/20 12:34 117 H 06/03/20 12:33 117 H - Physical Examination General: No Apparent Distress HEENT: Positive: PERRL Neck: Positive: trachea midline Cardiac: Positive: Reg Rate and Rhythm Lungs: Positive: Decreased Breath Sounds Neuro: Positive: Grossly Intact Extremities: Present: edema - Labs and Meds Cardiac Enzymes 06/04/20 Range/Units 05:35 AST 66 H (5-40) units/L Comprehensive Metabolic Panel 06/04/20 Range/Units 05:35 Sodium 132 L (137-145) mmol/L Potassium 3.4 L (3.6-5.0) mmol/L Chloride 96.7 L (98-107) mmol/L Carbon Dioxide 27 (22-30) mmol/L BUN 15 (9-20) mg/dL Creatinine 0.9 (0.8-1.3) mg/dL Glucose 123 H (75-100) mg/dL Calcium 8.3 L (8.4-10.2) mg/dL AST 66 H (5-40) units/L ALT 95 H (7-56) units/L Alkaline Phosphatase 81 (35-129) units/L Total Protein 6.3 (6.3-8.2) g/dL Albumin 2.9 L (3.9-5) g/dL
--- NOTE | 2020-06-04 12:38 | Ultrasound Report ---
ULTRASOUND ABDOMEN, LIMITED (RIGHT UPPER QUADRANT) INDICATION / CLINICAL INFORMATION: Abnormal LFTs. COMPARISON: CT abdomen/pelvis dated 08/10/2019. FINDINGS: PANCREAS: Visualized portion shows no significant abnormality. LIVER: Mild enlargement. The liver measures 20 cm in length and demonstrates diffusely increased echo genicity. GALLBLADDER: There are layering echogenic foci within the gallbladder lumen which do not demonstrate posterior acoustic shadowing. No gallbladder wall thickening is identified. No sonographic Emmanuel's s ign was elicited. BILE DUCTS: No significant abnormality. Common bile duct measures 3 mm. FREE FLUID: Small volume perihepatic free fluid. ADDITIONAL FINDINGS: None. IMPRESSION: 1. Uncomplicated cholelithiasis. 2. Mild hepatomegaly and hepatic steatosis. 3. Small volume perihepatic free fluid. Signer Name: Abdoul Cintron MD Signed: 06/04/2020 12:33 PM Workstation Name: [id number]
--- NOTE | 2020-06-04 12:58 | Procedure Note ---
Date of procedure: 06/04/20 Pre-op diagnosis: posterior scalp abscess Post-op diagnosis: other (Infected cyst of posterior scalp) Procedure: incision and drainage of posterior scalp abscess Findings: HPI and indication: 35 yo M admitted to hospital for new onset CHF. Also found to have posterior scalp abscess. This did not improve with 24 hours of abx and therefore incision and drainage recommended. Discussed with patient and consent obtained. Procedure: Time out performed. Patient in lateral decubitus position in hospital bed. Area prepped with betadine. Local anesthetic infiltrated into skin and intended incision site. A 2cm incision was made at the center of the fluctuant area with 11 blade. There was minimal pus and moderate amount of semisolid white material along with cyst wall. This appeared to be an infected cyst. The cavity was evacuated and cultures obtained. Once all of the material was evacuated, the cavity was irrigated and hemostasis ensured. The wound was packed with 1 piece of mesalt. This was covered with 4x4 gauze and wrapped with Kerlix. Pt tolerated the procedure well. RN present throughout procedure. All sharps disposed of appropriately. Anesthesia: local Surgeon: KOJO URBINA Estimated blood loss: minimal Pathology: list (wound culture) Specimen disposition: to lab Condition: stable Disposition: no change
--- NOTE | 2020-06-04 14:34 | Progress Note ---
<SMITHAMY WilkersonEl - Last Filed: 06/04/20 14:34> Assessment and Plan Assessment and plan: Acute systolic congestive heart failure -Patient presented with bilateral lower extremity swelling -06/02 proBNP 910.6 -Cardiology consulted, patient recommendations -Cardiology has initiated the patient on Coreg, Aldactone, lisinopril -Milrinone drip 06/03 through 06/06 per cardiology -06/02 echocardiogram shows severe four-chamber dilated cardiomyopathy, global left ventricular systolic function severely decreased, estimated ejection fraction of 10 to 15%, mild concentric LVH, moderate MR, moderate to severe TR, mild pulmonary hypertension, RVSP calculated at 30 mmHg with minimal pericardial effusion. Transaminitis -Presented with LFTs: T bili 1.1, AST 129, ALT 154, alk phos 98 -06/03 hepatitis panel nonreactive -Presented with Serum Alcohol Level of 0.02 -GI consulted, appreciate recommendations -Trend LFTs -06/04 abdominal ultrasound uncomplicated cholelithiasis, mild hepatomegaly and hepatic cyst dialysis and small volume perihepatic free fluid. Depression -Patient admits to self-medication with polysubstance abuse following the loss of his mother and aunt -Patient denies any SI or HI at this time -Psych consulted, appreciate recommendations -06/04 psych consult completed and he does not recommend inpatient hos pitalization at this time -Patient should has been started on antidepressants and vitamins Skin abscess -WOCN and general surgery consulted -Clindamycin IV -Wound care per nursing -06/04 s/p I&D with Dr. Parker of minimal pus and moderate amount of semisolid white material along with cyst wall and the cyst appeared to be infected. -06/04 wound culture pending -Follow-up in the surgery clinic post discharge Hyponatremia -Presented with a sodium of 133 -Trend sodium -Avoid MIVF in the setting of HFrEF -Monitor neuro status Hypochloremia -06/03 chloride 95 -Trend chloride Hypokalemia -06/04 potassium 3.4 -Repleted -Trend BMP Hypocalcemia -06/03 calcium 8.2, 06/04 calcium 8.3 -Trend calcium -Replete as needed EtoH abuse/cocaine abuse/marijuana abuse -Patient has a history of drinking six 6 pack/day of beer with 1 pint of hard liquor for "years" -[facility] protocol -Aspiration and seizure precautions -Supportive care -Nicotine TD DVT prophylaxis -SCDs to bilateral lower extremities while in bed -Lovenox subcu -GI prophylaxis History Interval history: This is a 35-year-old man with history of polysubstance and alcohol abuse who presented to the emergency department on 06/02 with complaints of bilateral lower extremity edema, scrotal edema, abdominal distention, orthopnea, nonproductive cough and difficulty breathing over the past several months which worsened over the past 2 weeks. Patient indicated that he has increased his substance abuse after personal losses but denies any homicidal or suicidal ideations. Work-up in the emergency department included a CXR which showed mild to moderate interstitial edema, elevated LFTs, slight hyponatremia, elevated proBNP at 910 and UDS positive for benzodiazepine, cocaine and marijuana with a serum plasma alcohol level of 0.02. Patient was also noted to have an abscess the back of his head. Patient was admitted to the hospitalist service for acute congestive heart failure, transaminitis and skin abscess. Surgery, WOCN, psych, cardiology and gastroenterology were consulted. 06/03: This morning patient underwent an echocardiogram and at the time of my exam complains of "peeing a lot." Patient admits to polysubstance abuse and was initiated on Coreg, lisinopril, Aldactone and milrinone by cardiology in addition to Lasix 40 twice daily. This afternoon his systolic blood pressure was noted to be 88, cardiology was made aware and his blood pressure medications were adjusted. 06/04: Overnight patient's milrinone drip dose was not decreased as ordered. Patient MAP maintained greater than 65. No acute events reported overnight. Patient is noted to be hypokalemic, hyponatremic and hypochloremic with hypocalcemia. His LFTs are improving. Hospitalist Physical - Physical exam Narrative exam: Not conducted due to patient not being available for physical examination this morning - Constitutional Vitals: Temp Pulse Resp BP Pulse Ox 98.6 F 99 H 18 92/48 98 06/04/20 04:24 06/04/20 10:00 06/04/20 04:24 06/04/20 04:24 06/04/20 04:24 General appearance: Present: mild distress HEART Score - HEART Score Troponin: Troponin T < 0.010 ng/mL (0.00-0.029) 06/02/20 12:27 Results - Labs CBC & Chem 7: 01/28/21 05:16 06/04/20 05:35 Labs: Laboratory Last Values WBC 4.8 K/mm3 (4.5-11.0) 06/03/20 05:16 RBC 3.80 M/mm3 (3.65-5.03) 06/03/20 05:16 Hgb 11.9 gm/dl (11.8-15.2) 06/03/20 05:16 Hct 36.3 % (35.5-45.6) 06/03/20 05:16 MCV 95 fl (84-94) H 06/03/20 05:16 MCH 31 pg (28-32) 06/03/20 05:16 MCHC 33 % (32-34) 06/03/20 05:16 RDW 13.5 % (13.2-15.2) 06/03/20 05:16 Plt Count 177 K/mm3 (140-440) 06/03/20 05:16 Lymph % (Auto) 36.0 % (13.4-35.0) H 06/03/20 05:16 [place] % (Auto) 14.6 % (0.0-7.3) H 06/03/20 05:16 Eos % (Auto) 0.8 % (0.0-4.3) 06/03/20 05:16 Baso % (Auto) 1.0 % (0.0-1.8) 06/03/20 05:16 Lymph # (Auto) 1.7 K/mm3 (1.2-5.4) 06/03/20 05:16 [place] # (Auto) 0.7 K/mm3 (0.0-0.8) 06/03/20 05:16 Eos # (Auto) 0.0 K/mm3 (0.0-0.4) 06/03/20 05:16 Baso # (Auto) 0.0 K/mm3 (0.0-0.1) 06/03/20 05:16 Seg Neutrophils % 47.6 % (40.0-70.0) 06/03/20 05:16 Seg Neutrophils # 2.3 K/mm3 (1.8-7.7) 06/03/20 05:16 PT 19.7 Sec. (12.2-14.9) H 06/03/20 05:16 INR 1.67 (0.87-1.13) H 06/03/20 05:16 Sodium 132 mmol/L (137-145) L 06/04/20 05:35 Potassium 3.4 mmol/L (3.6-5.0) L 06/04/20 05:35 Chloride 96.7 mmol/L (98-107) L 06/04/20 05:35 Carbon Dioxide 27 mmol/L (22-30) 06/04/20 05:35 Anion Gap 12 mmol/L 06/04/20 05:35 BUN 15 mg/dL (9-20) 06/04/20 05:35 Creatinine 0.9 mg/dL (0.8-1.3) 06/04/20 05:35 Estimated GFR > 60 ml/min 06/04/20 05:35 BUN/Creatinine Ratio 17 % 06/04/20 05:35 Glucose 123 mg/dL (75-100) H 06/04/20 05:35 POC Glucose 95 mg/dL (70-105) 06/03/20 15:02 Calcium 8.3 mg/dL (8.4-10.2) L 06/04/20 05:35 Total Bilirubin 1.20 mg/dL (0.1-1.2) 06/04/20 05:35 AST 66 units/L (5-40) H 06/04/20 05:35 ALT 95 units/L (7-56) H 06/04/20 05:35 Alkaline Phosphatase 81 units/L (35-129) 06/04/20 05:35 Troponin T < 0.010 ng/mL (0.00-0.029) 06/02/20 12:27 NT-Pro-B Natriuret Pep 910.6 pg/mL (0-450) H 06/02/20 12:27 Total Protein 6.3 g/dL (6.3-8.2) 06/04/20 05:35 Albumin 2.9 g/dL (3.9-5) L 06/04/20 05:35 Albumin/Globulin Ratio 0.9 % 06/04/20 05:35 TSH 1.690 mlU/mL (0.270-4.200) 06/02/20 12:27 Urine Color Edyta (Yellow) 06/02/20 10:40 Urine Turbidity Hazy (Clear) 06/02/20 10:40 Urine pH 5.0 (5.0-7.0) 06/02/20 10:40 Ur Specific [place] 1.026 (1.003-1.030) 06/02/20 10:40 Urine Protein 100 mg/dl mg/dL (Negative) 06/02/20 10:40 Urine Glucose (UA) Neg mg/dL (Negative) 06/02/20 10:40 Urine Ketones Neg mg/dL (Negative) 06/02/20 10:40 Urine Blood Neg (Negative) 06/02/20 10:40 Urine Nitrite Neg (Negative) 06/02/20 10:40 Urine Bilirubin Sm (Negative) 06/02/20 10:40 Urine Ictotest Positive (Negative) 06/02/20 10:40 Urine Urobilinogen 4.0 mg/dL (<2.0) 06/02/20 10:40 Ur Leukocyte Esterase Neg (Negative) 06/02/20 10:40 Urine WBC (Auto) 2.0 /HPF (0.0-6.0) 06/02/20 10:40 Urine RBC (Auto) 1.0 /HPF (0.0-6.0) 06/02/20 10:40 U Epithel Cells (Auto) < 1.0 /HPF (0-13.0) 06/02/20 10:40 Urine Mucus 2+ /HPF 06/02/20 10:40 Salicylates 1.7 mg/dL (2.8-20.0) L 06/02/20 12:27 Urine Opiates Screen Negative 06/02/20 10:40 Urine Methadone Screen Negative 06/02/20 10:40 Acetaminophen 5.0 ug/mL (10.0-30.0) L 06/02/20 12:27 Ur Barbiturates Screen Negative 06/02/20 10:40 Ur Phencyclidine Scrn Negative 06/02/20 10:40 Ur Amphetamines Screen Negative 06/02/20 10:40 U Benzodiazepines Scrn Presumptive positive 06/02/20 10:40 Urine Cocaine Screen Presumptive positive 06/02/20 10:40 U Marijuana (THC) Screen Presumptive positive 06/02/20 10:40 Drugs of Abuse Note Disclamer 06/02/20 10:40 Plasma/Serum Alcohol 0.02 % (0-0.07) 06/02/20 12:27 Hepatitis A IgM Ab Non-reactive (NonReactive) 06/03/20 05:16 Hep Bs Antigen Non-reactive (Negative) 06/03/20 05:16 Hep B Core IgM Ab Non-reactive (NonReactive) 06/03/20 05:16 Hepatitis C Antibody Non-reactive (NonReactive) 06/03/20 05:16 - Diagnostic Impressions Diagnostic Impressions: Echocardiogram 06/02/20 15:08 Transthoracic Echocardiogram Indication: SOB; Bilateral lower extremity swelling BP: 78/61 HR: 110 Conclusions *Severe, 4-chamber dilated cardiomyopathy. *Global left ventricular systolic function is severely decreased. *The estimated ejection fraction is 10-15%. *Mild concentric left ventricular hypertrophy is observed. *There is moderate mitral regurgitation. *There is moderate to severe tricuspid regurgitation. *There is evidence of mild pulmonary hypertension. *The right ventricular systolic pressure is calculated at 33 mmHg. *There is a minimial pericardial effusion. Findings Left Ventricle: The left ventricular chamber size is severely dilated. Mild concentric left ventricular hypertrophy is observed. Global left ventricular systolic function is severely decreased. The estimated ejection fraction is 10-15%. Left Atrium: The left atrium is moderate to severely dilated. Right Ventricle: The right ventricle is moderate to severely dilated. The right ventricular global systolic function is severely reduced. Right Atrium: The right atrial cavity size is severely dilated. Aortic Valve: The aortic valve is trileaflet. The aortic valve leaflets are mildly thickened. There is no evidence of aortic regurgitation. There is no evidence of aortic stenosis. Mitral Valve: The mitral valve leaflets are mildly thickened. There is moderate mitral regurgitation. Tricuspid Valve: The tricuspid valve leaflets are normal. There is moderate to severe tricuspid regurgitation. The right ventricular systolic pressure is calculated at 33 mmHg. There is evidence of mild pulmonary hypertension. Pulmonic Valve: There is mild pulmonic regurgitation. Pericardium: There is a minimial pericardial effusion. Aorta: There is no dilatation of the ascending aorta. There is no dilatation of the aortic root. Venous: The inferior vena cava is dilated. Measurements Chambers 2D Name Value Normal Range IVSd (2D) 0.87 cm (0.6 - 1.1) LVPWd (2D) 0.84 cm (0.6 - 1.1) LVIDd (2D) 6.25 cm (3.7 - 5.6) LVIDs (2D) 5.67 cm (2 - 3.8) LV FS (2D) 9.19 % - EF Teichholz (2D) 19.78 % - Ao root diameter (2D) 2.14 cm (2 - 3.7) Volumes/Mass Name Value Normal Range LA ESV SP 4CH (A/L) 59.45 ml - LA ESV SP 2CH (A/L) 89.36 ml - LA ESV BP (A/L) 72.93 ml - LA ESV BP (A/L) index 37.98 ml/m2 - LA ESV SP 4CH (MOD) 56.28 ml - LA ESV SP 2CH (MOD) 87.37 ml - LA ESV BP (MOD) 69 ml - LA ESV BP (MOD) index 35.94 ml/m2 - Aortic Valve Name Value Normal Range AV Vmax 0.95 m/sec - AV VTI 13.74 cm - AV peak gradient 3.59 mmHg - AV mean gradient 2.25 mmHg - LVOT diameter 2.1 cm - LVOT Vmax 0.79 m/sec - LVOT VTI 12.16 cm - LVOT peak gradient 2.5 mmHg - LVOT mean gradient 1.57 mmHg - SV LVOT 41.93 ml - CHEN (continuity Vmax) 2.87 cm2 - CHEN (continuity VTI) 3.05 cm2 - Ascending Ao 2.78 cm - Mitral Valve Name Value Normal Range MV Vmax 1.02 m/sec - MV VTI 11.35 cm - MV peak gradient 4.16 mmHg - MV mean gradient 2.15 mmHg - MV PHT 22.04 msec - MR Vmax 4.28 m/sec - MVA (PHT) 9.98 cm2 - MVA (continuity VTI) 3.69 cm2 - Tricuspid Valve Name Value Normal Range TR Vmax 2.51 m/sec - TR peak gradient 25 mmHg - RAP 8 mmHg - RVSP 33 mmHg - IVC diameter 3.11 cm (1.2 - 2.3) Pulmonic Valve/Qp:Qs Name Value Normal Range PV Vmax 0.67 m/sec - PV peak gradient 1.8 mmHg - [place] end-diastolic Vmax 1.84 m/sec - PV acceleration time 79.92 msec - Swan/IV: Voiding Method Toilet IV Catheter Type [Left Forearm Peripheral IV ] Active Medications - Current Medications Current Medications: Generic Name Dose Route Start Last Admin Trade Name Freq PRN Reason Stop Dose Admin Acetaminophen 650 mg 06/02/20 15:07 06/03/20 15:15 Acetaminophen 325 Mg Tab PO 650 mg Q4H PRN Administration Pain MILD(1-3)/Fever >100.5/MALONE Carvedilol 3.125 mg 06/03/20 22:00 06/04/20 11:16 Carvedilol 3.125 Mg Tab PO 3.125 mg BID NADEEM Administration Enoxaparin Sodium 40 mg 06/02/20 22:00 06/03/20 21:16 Enoxaparin 40 Mg/0.4 Ml Inj SUB-Q 40 mg QDAY@2200 NADEEM Administration Protocol Folic Acid 1 mg 06/04/20 10:00 06/04/20 11:16 Folic Acid 1 Mg Tab PO 1 mg QDAY NADEEM Administration Furosemide 40 mg 06/02/20 18:00 06/04/20 05:37 Furosemide 40 Mg/4 Ml Inj IV 40 mg BID@0600,1800 NADEEM Administration Clindamycin HCl 600 mg in 50 mls @ 100 mls/hr 06/02/20 16:00 06/04/20 01:21 Cleocin 600 Mg/50 Ml IV 100 mls/hr Q8H NADEEM Administration Protocol Milrinone Lactate/Dextrose 20 mg in 100 mls @ 6.638 mls/hr 06/03/20 13:00 06/04/20 05:35 Milrinone-D5w 20 Mg/100 Ml IV 06/06/20 12:59 0.375 mcg/kg/min TITR NADEEM 9.956 mls/hr Administration 0.25 MCG/KG/MIN Lidocaine 20 ml 06/04/20 10:29 Lidocaine (1%) 10 Mg/1 Ml Vial 20 Ml Mdv INFILTRATI 06/04/20 17:00 ONCE NR Magnesium Hydroxide 30 ml 06/02/20 15:07 Magnesium Hydroxide (Mom) Oral Liqd Udc PO Q4H PRN Constipation Morphine Sulfate 2 mg 06/02/20 15:07 06/03/20 03:47 Morphine 2 Mg/1 Ml Inj IV 2 mg Q5MIN PRN Administration Chest Pain unrelieved by NTG Multivitamins 1 each 06/04/20 10:00 06/04/20 11:16 Multivitamins ,Therapeutic Tab PO 1 each QDAY NADEEM Administration Nicotine 21 mg 06/04/20 10:00 06/04/20 11:16 Nicotine 21 Mg/24 Hr Patch TD 21 mg QDAY NADEEM Administration Ondansetron HCl 4 mg 06/02/20 15:07 Ondansetron 4 Mg/2 Ml Inj IV Q8H PRN Nausea And Vomiting Sertraline HCl 25 mg 06/04/20 10:00 06/04/20 11:16 Sertraline 25 Mg Tab PO 25 mg QDAY NADEEM Administration Sodium Chloride 10 ml 06/02/20 22:00 06/04/20 11:17 Sodium Chloride 0.9% 10 Ml Flush Syringe IV 10 ml BID NADEEM Administration Sodium Chloride 10 ml 06/02/20 15:07 06/04/20 05:38 Sodium Chloride 0.9% 10 Ml Flush Syringe IV 10 ml PRN PRN Administration LINE FLUSH Trazodone HCl 50 mg 06/04/20 22:00 Trazodone 50 Mg Tab PO QHS NADEEM <NANCY MARKS - Last Filed: 06/04/20 18:05> History Interval history: Agree with assessment and plan as outlined as above. Patient was seen, states that his shortness of breath is improving somewhat. Lower extremity edema is im proving. Milrinone drip issue has been dealt with. Borderline hypotension, blood pressures medication has been adjusted. Hospitalist Physical - Constitutional Vitals: Temp Pulse Resp BP Pulse Ox 98.8 F 106 H 18 94/57 95 06/04/20 18:03 06/04/20 18:03 06/04/20 18:03 06/04/20 18:03 06/04/20 18:03 HEART Score - HEART Score Troponin: Troponin T < 0.010 ng/mL (0.00-0.029) 06/02/20 12:27 Results - Labs CBC & Chem 7: 06/03/20 05:16 06/04/20 05:35 Labs: Laboratory Last Values WBC 4.8 K/mm3 (4.5-11.0) 06/03/20 05:16 RBC 3.80 M/mm3 (3.65-5.03) 06/03/20 05:16 Hgb 11.9 gm/dl (11.8-15.2) 06/03/20 05:16 Hct 36.3 % (35.5-45.6) 06/03/20 05:16 MCV 95 fl (84-94) H 06/03/20 05:16 MCH 31 pg (28-32) 06/03/20 05:16 MCHC 33 % (32-34) 06/03/20 05:16 RDW 13.5 % (13.2-15.2) 06/03/20 05:16 Plt Count 177 K/mm3 (140-440) 06/03/20 05:16 Lymph % (Auto) 36.0 % (13.4-35.0) H 06/03/20 05:16 [place] % (Auto) 14.6 % (0.0-7.3) H 06/03/20 05:16 Eos % (Auto) 0.8 % (0.0-4.3) 06/03/20 05:16 Baso % (Auto) 1.0 % (0.0-1.8) 06/03/20 05:16 Lymph # (Auto) 1.7 K/mm3 (1.2-5.4) 06/03/20 05:16 [place] # (Auto) 0.7 K/mm3 (0.0-0.8) 06/03/20 05:16 Eos # (Auto) 0.0 K/mm3 (0.0-0.4) 06/03/20 05:16 Baso # (Auto) 0.0 K/mm3 (0.0-0.1) 06/03/20 05:16 Seg Neutrophils % 47.6 % (40.0-70.0) 06/03/20 05:16 Seg Neutrophils # 2.3 K/mm3 (1.8-7.7) 06/03/20 05:16 PT 19.7 Sec. (12.2-14.9) H 06/03/20 05:16 INR 1.67 (0.87-1.13) H 06/03/20 05:16 Sodium 132 mmol/L (137-145) L 06/04/20 05:35 Potassium 3.4 mmol/L (3.6-5.0) L 06/04/20 05:35 Chloride 96.7 mmol/L (98-107) L 06/04/20 05:35 Carbon Dioxide 27 mmol/L (22-30) 06/04/20 05:35 Anion Gap 12 mmol/L 06/04/20 05:35 BUN 15 mg/dL (9-20) 06/04/20 05:35 Creatinine 0.9 mg/dL (0.8-1.3) 06/04/20 05:35 Estimated GFR > 60 ml/min 06/04/20 05:35 BUN/Creatinine Ratio 17 % 06/04/20 05:35 Glucose 123 mg/dL (75-100) H 06/04/20 05:35 POC Glucose 95 mg/dL (70-105) 06/03/20 15:02 Calcium 8.3 mg/dL (8.4-10.2) L 06/04/20 05:35 Total Bilirubin 1.20 mg/dL (0.1-1.2) 06/04/20 05:35 AST 66 units/L (5-40) H 06/04/20 05:35 ALT 95 units/L (7-56) H 06/04/20 05:35 Alkaline Phosphatase 81 units/L (35-129) 06/04/20 05:35 Troponin T < 0.010 ng/mL (0.00-0.029) 06/02/20 12:27 NT-Pro-B Natriuret Pep 910.6 pg/mL (0-450) H 06/02/20 12:27 Total Protein 6.3 g/dL (6.3-8.2) 06/04/20 05:35 Albumin 2.9 g/dL (3.9-5) L 06/04/20 05:35 Albumin/Globulin Ratio 0.9 % 06/04/20 05:35 TSH 1.690 mlU/mL (0.270-4.200) 06/02/20 12:27 Urine Color Edyta (Yellow) 06/02/20 10:40 Urine Turbidity Hazy (Clear) 06/02/20 10:40 Urine pH 5.0 (5.0-7.0) 06/02/20 10:40 Ur Specific [place] 1.026 (1.003-1.030) 06/02/20 10:40 Urine Protein 100 mg/dl mg/dL (Negative) 06/02/20 10:40 Urine Glucose (UA) Neg mg/dL (Negative) 06/02/20 10:40 Urine Ketones Neg mg/dL (Negative) 06/02/20 10:40 Urine Blood Neg (Negative) 06/02/20 10:40 Urine Nitrite Neg (Negative) 06/02/20 10:40 Urine Bilirubin Sm (Negative) 06/02/20 10:40 Urine Ictotest Positive (Negative) 06/02/20 10:40 Urine Urobilinogen 4.0 mg/dL (<2.0) 06/02/20 10:40 Ur Leukocyte Esterase Neg (Negative) 06/02/20 10:40 Urine WBC (Auto) 2.0 /HPF (0.0-6.0) 06/02/20 10:40 Urine RBC (Auto) 1.0 /HPF (0.0-6.0) 06/02/20 10:40 U Epithel Cells (Auto) < 1.0 /HPF (0-13.0) 06/02/20 10:40 Urine Mucus 2+ /HPF 06/02/20 10:40 Salicylates 1.7 mg/dL (2.8-20.0) L 06/02/20 12:27 Urine Opiates Screen Negative 06/02/20 10:40 Urine Methadone Screen Negative 06/02/20 10:40 Acetaminophen 5.0 ug/mL (10.0-30.0) L 06/02/20 12:27 Ur Barbiturates Screen Negative 06/02/20 10:40 Ur Phencyclidine Scrn Negative 06/02/20 10:40 Ur Amphetamines Screen Negative 06/02/20 10:40 U Benzodiazepines Scrn Presumptive positive 06/02/20 10:40 Urine Cocaine Screen Presumptive positive 06/02/20 10:40 U Marijuana (THC) Screen Presumptive positive 06/02/20 10:40 Drugs of Abuse Note Disclamer 06/02/20 10:40 Plasma/Serum Alcohol 0.02 % (0-0.07) 06/02/20 12:27 Hepatitis A IgM Ab Non-reactive (NonReactive) 06/03/20 05:16 Hep Bs Antigen Non-reactive (Negative) 06/03/20 05:16 Hep B Core IgM Ab Non-reactive (NonReactive) 06/03/20 05:16 Hepatitis C Antibody Non-reactive (NonReactive) 06/03/20 05:16 - Diagnostic Impressions Diagnostic Impressions: Echocardiogram 06/02/20 15:08 Transthoracic Echocardiogram Indication: SOB; Bilateral lower extremity swelling BP: 78/61 HR: 110 Conclusions *Severe, 4-chamber dilated cardiomyopathy. *Global left ventricular systolic function is severely decreased. *The estimated ejection fraction is 10-15%. *Mild concentric left ventricular hypertrophy is observed. *There is moderate mitral regurgitation. *There is moderate to severe tricuspid regurgitation. *There is evidence of mild pulmonary hypertension. *The right ventricular systolic pressure is calculated at 33 mmHg. *There is a minimial pericardial effusion. Findings Left Ventricle: The left ventricular chamber size is severely dilated. Mild concentric left ventricular hypertrophy is observed. Global left ventricular systolic function is severely decreased. The estimated ejection fraction is 10-15%. Left Atrium: The left atrium is moderate to severely dilated. Right Ventricle: The right ventricle is moderate to severely dilated. The right ventricular global systolic function is severely reduced. Right Atrium: The right atrial cavity size is severely dilated. Aortic Valve: The aortic valve is trileaflet. The aortic valve leaflets are mildly thickened. There is no evidence of aortic regurgitation. There is no evidence of aortic stenosis. Mitral Valve: The mitral valve leaflets are mildly thickened. There is moderate mitral regurgitation. Tricuspid Valve: The tricuspid valve leaflets are normal. There is moderate to severe tricuspid regurgitation. The right ventricular systolic pressure is calculated at 33 mmHg. There is evidence of mild pulmonary hypertension. Pulmonic Valve: There is mild pulmonic regurgitation. Pericardium: There is a minimial pericardial effusion. Aorta: There is no dilatation of the ascending aorta. There is no dilatation of the aortic root. Venous: The inferior vena cava is dilated. Measurements Chambers 2D Name Value Normal Range IVSd (2D) 0.87 cm (0.6 - 1.1) LVPWd (2D) 0.84 cm (0.6 - 1.1) LVIDd (2D) 6.25 cm (3.7 - 5.6) LVIDs (2D) 5.67 cm (2 - 3.8) LV FS (2D) 9.19 % - EF Teichholz (2D) 19.78 % - Ao root diameter (2D) 2.14 cm (2 - 3.7) Volumes/Mass Name Value Normal Range LA ESV SP 4CH (A/L) 59.45 ml - LA ESV SP 2CH (A/L) 89.36 ml - LA ESV BP (A/L) 72.93 ml - LA ESV BP (A/L) index 37.98 ml/m2 - LA ESV SP 4CH (MOD) 56.28 ml - LA ESV SP 2CH (MOD) 87.37 ml - LA ESV BP (MOD) 69 ml - LA ESV BP (MOD) index 35.94 ml/m2 - Aortic Valve Name Value Normal Range AV Vmax 0.95 m/sec - AV VTI 13.74 cm - AV peak gradient 3.59 mmHg - AV mean gradient 2.25 mmHg - LVOT diameter 2.1 cm - LVOT Vmax 0.79 m/sec - LVOT VTI 12.16 cm - LVOT peak gradient 2.5 mmHg - LVOT mean gradient 1.57 mmHg - SV LVOT 41.93 ml - CHEN (continuity Vmax) 2.87 cm2 - CHEN (continuity VTI) 3.05 cm2 - Ascending Ao 2.78 cm - Mitral Valve Name Value Normal Range MV Vmax 1.02 m/sec - MV VTI 11.35 cm - MV peak gradient 4.16 mmHg - MV mean gradient 2.15 mmHg - MV PHT 22.04 msec - MR Vmax 4.28 m/sec - MVA (PHT) 9.98 cm2 - MVA (continuity VTI) 3.69 cm2 - Tricuspid Valve Name Value Normal Range TR Vmax 2.51 m/sec - TR peak gradient 25 mmHg - RAP 8 mmHg - RVSP 33 mmHg - IVC diameter 3.11 cm (1.2 - 2.3) Pulmonic Valve/Qp:Qs Name Value Normal Range PV Vmax 0.67 m/sec - PV peak gradient 1.8 mmHg - [place] end-diastolic Vmax 1.84 m/sec - PV acceleration time 79.92 msec - Swan/IV: Voiding Method Toilet IV Catheter Type [Left Forearm Peripheral IV ] Active Medications - Current Medications Current Medications: Generic Name Dose Route Start Last Admin Trade Name Freq PRN Reason Stop Dose Admin Acetaminophen 650 mg 06/02/20 15:07 06/03/20 15:15 Acetaminophen 325 Mg Tab PO 650 mg Q4H PRN Administration Pain MILD(1-3)/Fever >100.5/MALONE Carvedilol 3.125 mg 06/03/20 22:00 06/04/20 11:16 Carvedilol 3.125 Mg Tab PO 3.125 mg BID NADEEM Administration Enoxaparin Sodium 40 mg 06/02/20 22:00 06/03/20 21:16 Enoxaparin 40 Mg/0.4 Ml Inj SUB-Q 40 mg QDAY@2200 NADEEM Administration Protocol Folic Acid 1 mg 06/04/20 10:00 06/04/20 11:16 Folic Acid 1 Mg Tab PO 1 mg QDAY NADEEM Administration Furosemide 40 mg 06/02/20 18:00 06/04/20 05:37 Furosemide 40 Mg/4 Ml Inj IV 40 mg BID@0600,1800 NADEEM Administration Clindamycin HCl 600 mg in 50 mls @ 100 mls/hr 06/02/20 16:00 06/04/20 01:21 Cleocin 600 Mg/50 Ml IV 100 mls/hr Q8H NADEEM Administration Protocol Milrinone Lactate/Dextrose 20 mg in 100 mls @ 6.638 mls/hr 06/03/20 13:00 06/04/20 05:35 Milrinone-D5w 20 Mg/100 Ml IV 06/06/20 12:59 0.375 mcg/kg/min TITR NADEEM 9.956 mls/hr Administration 0.25 MCG/KG/MIN Magnesium Hydroxide 30 ml 06/02/20 15:07 Magnesium Hydroxide (Mom) Oral Liqd Udc PO Q4H PRN Constipation Morphine Sulfate 2 mg 06/02/20 15:07 06/03/20 03:47 Morphine 2 Mg/1 Ml Inj IV 2 mg Q5MIN PRN Administration Chest Pain unrelieved by NTG Multivitamins 1 each 06/04/20 10:00 06/04/20 11:16 Multivitamins ,Therapeutic Tab PO 1 each QDAY NADEEM Administration Nicotine 21 mg 06/04/20 10:00 06/04/20 11:16 Nicotine 21 Mg/24 Hr Patch TD 21 mg QDAY NADEEM Administration Ondansetron HCl 4 mg 06/02/20 15:07 Ondansetron 4 Mg/2 Ml Inj IV Q8H PRN Nausea And Vomiting Sertraline HCl 25 mg 06/04/20 10:00 06/04/20 11:16 Sertraline 25 Mg Tab PO 25 mg QDAY NADEEM Administration Sodium Chloride 10 ml 06/02/20 22:00 06/04/20 11:17 Sodium Chloride 0.9% 10 Ml Flush Syringe IV 10 ml BID NADEEM Administration Sodium Chloride 10 ml 06/02/20 15:07 06/04/20 05:38 Sodium Chloride 0.9% 10 Ml Flush Syringe IV 10 ml PRN PRN Administration LINE FLUSH Trazodone HCl 50 mg 06/04/20 22:00 Trazodone 50 Mg Tab PO QHS NADEEM
--- NOTE | 2020-06-04 17:35 | Progress Note ---
Assessment and Plan 1. Abnormal transaminases - likely due to congestive hepatopathy. Hepatitis serologies negative. LFTs improved. U/S negative. - quit EtOH - monitor labs, with diuresis Will sign off. Thanks. Subjective Date of service: 06/04/20 Interval history: No GI complaints. Objective - Constitutional Vitals: Vital Signs - 12hr 06/04/20 10:00 Pulse Rate 99 H General appearance: Present: no acute distress - EENT Eyes: PERRL, EOM intact ENT: hearing intact - Labs CBC & Chem 7: 06/03/20 05:16 06/04/20 05:35 Labs: Abnormal lab results 06/04/20 Range/Units 05:35 Sodium 132 L (137-145) mmol/L Potassium 3.4 L (3.6-5.0) mmol/L Chloride 96.7 L (98-107) mmol/L Glucose 123 H (75-100) mg/dL Calcium 8.3 L (8.4-10.2) mg/dL AST 66 H (5-40) units/L ALT 95 H (7-56) units/L Albumin 2.9 L (3.9-5) g/dL Medications & Allergies - Medications Allergies/Adverse Reactions: Allergies No Known Allergies Allergy (Unverified 10/01/19 00:28) Home Medications: Home Medications Medication Instructions Recorded Confirmed Last Taken Type No Known Home Medications [No 06/02/20 06/02/20 Unknown History Reported Home Medications] Active Medications: Generic Name Dose Route Start Last Admin Trade Name Freq PRN Reason Stop Dose Admin Acetaminophen 650 mg 06/02/20 15:07 06/03/20 15:15 Acetaminophen 325 Mg Tab PO 650 mg Q4H PRN Administration Pain MILD(1-3)/Fever >100.5/MALONE Carvedilol 3.125 mg 06/03/20 22:00 06/04/20 11:16 Carvedilol 3.125 Mg Tab PO 3.125 mg BID NADEEM Administration Enoxaparin Sodium 40 mg 06/02/20 22:00 06/03/20 21:16 Enoxaparin 40 Mg/0.4 Ml Inj SUB-Q 40 mg QDAY@2200 NADEEM Administration Protocol Folic Acid 1 mg 06/04/20 10:00 06/04/20 11:16 Folic Acid 1 Mg Tab PO 1 mg QDAY NADEEM Administration Furosemide 40 mg 06/02/20 18:00 06/04/20 05:37 Furosemide 40 Mg/4 Ml Inj IV 40 mg BID@0600,1800 NADEEM Administration Clindamycin HCl 600 mg in 50 mls @ 100 mls/hr 06/02/20 16:00 06/04/20 01:21 Cleocin 600 Mg/50 Ml IV 100 mls/hr Q8H NADEEM Administration Protocol Milrinone Lactate/Dextrose 20 mg in 100 mls @ 6.638 mls/hr 06/03/20 13:00 06/04/20 05:35 Milrinone-D5w 20 Mg/100 Ml IV 06/06/20 12:59 0.375 mcg/kg/min TITR NADEEM 9.956 mls/hr Administration 0.25 MCG/KG/MIN Magnesium Hydroxide 30 ml 06/02/20 15:07 Magnesium Hydroxide (Mom) Oral Liqd Udc PO Q4H PRN Constipation Morphine Sulfate 2 mg 06/02/20 15:07 06/03/20 03:47 Morphine 2 Mg/1 Ml Inj IV 2 mg Q5MIN PRN Administration Chest Pain unrelieved by NTG Multivitamins 1 each 06/04/20 10:00 06/04/20 11:16 Multivitamins ,Therapeutic Tab PO 1 each QDAY [facility] Administration Nicotine 21 mg 06/04/20 10:00 06/04/20 11:16 Nicotine 21 Mg/24 Hr Patch TD 21 mg QDAY NADEEM Administration Ondansetron HCl 4 mg 06/02/20 15:07 Ondansetron 4 Mg/2 Ml Inj IV Q8H PRN Nausea And Vomiting Sertraline HCl 25 mg 06/04/20 10:00 06/04/20 11:16 Sertraline 25 Mg Tab PO 25 mg QDAY NADEEM Administration Sodium Chloride 10 ml 06/02/20 22:00 06/04/20 11:17 Sodium Chloride 0.9% 10 Ml Flush Syringe IV 10 ml BID NADEEM Administration Sodium Chloride 10 ml 06/02/20 15:07 06/04/20 05:38 Sodium Chloride 0.9% 10 Ml Flush Syringe IV 10 ml PRN PRN Administration LINE FLUSH Trazodone HCl 50 mg 06/04/20 22:00 Trazodone 50 Mg Tab PO QHS [facility] HEART Score - HEART Score Troponin: Troponin T < 0.010 ng/mL (0.00-0.029) 06/02/20 12:27
[2020-06-04] MEDS: ACETAMINOPHEN 325 MG TAB PO PRN (20:05)
[2020-06-04] MEDS: traZODone 50 MG TAB PO SCH (21:39)
[2020-06-04] MEDS: ENOXAPARIN 40 MG/0.4 ML INJ SUB-Q SCH (21:39)
[2020-06-05] MEDS: CLINDAMYCIN 600 MG/50 mL 600 MG/50 ML BAG IV SCH ×5 (01:29→23:07)
[2020-06-05] MEDS: FUROSEMIDE 40 MG/4 ML INJ IV SCH ×2 (05:57→17:12)
[2020-06-05 07:23] LABS: Alanine Aminotransferase 73 units/L (7-56); Albumin 2.9 g/dL (3.9-5); BUN/Creatinine Ratio 16; Bilirubin,Direct 0.7 mg/dL (0-0.2); Blood Urea Nitrogen 14 mg/dL (9-20); Calcium 8.6 mg/dL (8.4-10.2); Hemolysis Index 4
[2020-06-05] MEDS: NICOTINE 21 MG/24 HR PATCH TD SCH (09:20)
[2020-06-05] MEDS: POTASSIUM CHLORIDE ER 20 MEQ TAB PO SCH (09:21)
[2020-06-05] MEDS: carvediloL 3.125 MG TAB PO SCH ×2 (09:21→21:31)
[2020-06-05] MEDS: MULTIVITAMINS ,THERAPEUTIC TAB PO SCH (09:21)
[2020-06-05] MEDS: FOLIC ACID 1 MG TAB PO SCH (09:21)
[2020-06-05] MEDS: SERTRALINE 25 MG TAB PO SCH (09:22)
--- NOTE | 2020-06-05 09:28 | Progress Note ---
Assessment and Plan Assessment and plan: Acute systolic congestive heart failure -Patient presented with bilateral lower extremity swelling -06/02 proBNP 910.6 -Cardiology consulted, patient recommendations -Cardiology has initiated the patient on Coreg, Aldactone, lisinopril -Milrinone drip 06/03 through 06/06 per cardiology -06/02 echocardiogram shows severe four-chamber dilated cardiomyopathy, global left ventricular systolic function severely decreased, estimated ejection fraction of 10 to 15%, mild concentric LVH, moderate MR, moderate to severe TR, mild pulmonary hypertension, RVSP calculated at 30 mmHg with minimal pericardial effusion. Transaminitis -Presented with LFTs: T bili 1.1, AST 129, ALT 154, alk phos 98 -06/03 hepatitis panel nonreactive -Presented with Serum Alcohol Level of 0.02 -GI consulted, appreciate recommendations -Trend LFTs -06/04 abdominal ultrasound uncomplicated cholelithiasis, mild hepatomegaly and hepatic cyst dialysis and small volume perihepatic free fluid. Depression -Patient admits to self-medication with polysubstance abuse following the loss of his mother and aunt -Patient denies any SI or HI at this time -Psych consulted, appreciate recommendations -06/04 psych consult completed and he does not recommend inpatient hospitalization at this time -Patient should has been started on antidepressants and vitamins Skin abscess of the occipital region -WOCN and general surgery consulted -Clindamycin IV -Wound care per nursing -06/04 s/p I&D with Dr. Parker of minimal pus and moderate amount of semisolid white material along with cyst wall and the cyst appeared to be infected. -06/04 wound culture pending -Follow-up in the surgery clinic post discharge Hyponatremia -Presented with a sodium of 133 -Trend sodium -Avoid MIVF in the setting of HFrEF -Monitor neuro status Hypochloremia -06/03 chloride 95 -Trend chloride Hypokalemia -06/04 potassium 3.4 -Repleted -Trend BMP Hypocalcemia -06/03 calcium 8.2, 06/04 calcium 8.3 -Trend calcium -Replete as needed EtoH abuse/cocaine abuse/marijuana abuse -Patient has a history of drinking six 6 pack/day of beer with 1 pint of hard liquor for "years" -[facility] protocol -Aspiration and seizure precautions -Supportive care -Nicotine TD DVT prophylaxis -SCDs to bilateral lower extremities while in bed -Lovenox subcu -GI prophylaxis History Interval history: Interval history: This is a 35-year-old man with history of polysubstance and alcohol abuse who presented to the emergency department on 06/02 with complaints of bilateral lower extremity edema, scrotal edema, abdominal distention, orthopnea, nonproductive cough and difficulty breathing over the past several months which worsened over the past 2 weeks. Patient indicated that he has increased his substance abuse after personal losses but denies any homicidal or suicidal ideations. Work-up in the emergency department included a CXR which showed mild to moderate interstitial edema, elevated LFTs, slight hyponatremia, elevated proBNP at 910 and UDS positive for benzodiazepine, cocaine and marijuana with a serum plasma alcohol level of 0.02. Patient was also noted to have an abscess the back of his head. Patient was admitted to the hospitalist service for acute congestive heart failure, transaminitis and skin abscess. Surgery, WOCN, psych, cardiology and gastroenterology were consulted. 06/03: This morning patient underwent an echocardiogram and at the time of my exam complains of "peeing a lot." Patient admits to polysubstance abuse and was initiated on Coreg, lisinopril, Aldactone and milrinone by cardiology in addition to Lasix 40 twice daily. This afternoon his systolic blood pressure was noted to be 88, cardiology was made aware and his blood pressure medications were adjusted. 06/04: Overnight patient's milrinone drip dose was not decreased as ordered. Patient MAP maintained greater than 65. No acute events reported overnight. Patient is noted to be hypokalemic, hyponatremic and hypochloremic with hypocalcemia. His LFTs are improving. Hospitalist Physical - Physical exam Narrative exam: General appearance: Present: no acute distress, well-nourished - EENT Eyes: Present: PERRL, EOM intact ENT: hearing intact, clear oral mucosa - Respiratory Respiratory effort: normal Respiratory: bilateral: CTA, minimal crackles heard in lower lung bases, no wheezes or rhonchi heard - Cardiovascular Rhythm: regular Heart Sounds: Present: S1 & S2. Absent: rub, click - Extremities Extremities: no ischemia, +1 pitting edema bilaterally in lower extremities, normal temperature, normal color, Full ROM - Abdominal General gastrointestinal: soft, non-tender, nondistended, firm, decreased bowel sounds - Integumentary Integumentary: Present: Occipital cyst, 1.5 cm in diameter, all other skin clear, warm, dry, normal turgor - Neurologic Neurologic: CNII-XII intact, no focal deficits, moves all extremities - Constitutional Vitals: Temp Pulse Resp BP Pulse Ox 99.1 F 108 H 18 124/83 97 06/05/20 09:05 06/05/20 09:02 06/05/20 09:02 06/05/20 09:02 06/05/20 09:02 HEART Score - HEART Score Troponin: Troponin T < 0.010 ng/mL (0.00-0.029) 06/02/20 12:27 Results - Labs CBC & Chem 7: 06/03/20 05:16 06/05/20 06:42 Labs: Laboratory Last Values WBC 4.8 K/mm3 (4.5-11.0) 06/03/20 05:16 RBC 3.80 M/mm3 (3.65-5.03) 06/03/20 05:16 Hgb 11.9 gm/dl (11.8-15.2) 06/03/20 05:16 Hct 36.3 % (35.5-45.6) 06/03/20 05:16 MCV 95 fl (84-94) H 06/03/20 05:16 MCH 31 pg (28-32) 06/03/20 05:16 MCHC 33 % (32-34) 06/03/20 05:16 RDW 13.5 % (13.2-15.2) 06/03/20 05:16 Plt Count 177 K/mm3 (140-440) 06/03/20 05:16 Lymph % (Auto) 36.0 % (13.4-35.0) H 06/03/20 05:16 [place] % (Auto) 14.6 % (0.0-7.3) H 06/03/20 05:16 Eos % (Auto) 0.8 % (0.0-4.3) 06/03/20 05:16 Baso % (Auto) 1.0 % (0.0-1.8) 06/03/20 05:16 Lymph # (Auto) 1.7 K/mm3 (1.2-5.4) 06/03/20 05:16 [place] # (Auto) 0.7 K/mm3 (0.0-0.8) 06/03/20 05:16 Eos # (Auto) 0.0 K/mm3 (0.0-0.4) 06/03/20 05:16 Baso # (Auto) 0.0 K/mm3 (0.0-0.1) 06/03/20 05:16 Seg Neutrophils % 47.6 % (40.0-70.0) 06/03/20 05:16 Seg Neutrophils # 2.3 K/mm3 (1.8-7.7) 06/03/20 05:16 PT 19.7 Sec. (12.2-14.9) H 06/03/20 05:16 INR 1.67 (0.87-1.13) H 06/03/20 05:16 Sodium 134 mmol/L (137-145) L 06/05/20 06:42 Potassium 3.1 mmol/L (3.6-5.0) L 06/05/20 06:42 Chloride 97.0 mmol/L (98-107) L 06/05/20 06:42 Carbon Dioxide 25 mmol/L (22-30) 06/05/20 06:42 Anion Gap 15 mmol/L 06/05/20 06:42 BUN 14 mg/dL (9-20) 06/05/20 06:42 Creatinine 0.9 mg/dL (0.8-1.3) 06/05/20 06:42 Estimated GFR > 60 ml/min 06/05/20 06:42 BUN/Creatinine Ratio 16 % 06/05/20 06:42 Glucose 99 mg/dL (75-100) 06/05/20 06:42 POC Glucose 95 mg/dL (70-105) 06/03/20 15:02 Calcium 8.6 mg/dL (8.4-10.2) 06/05/20 06:42 Total Bilirubin 1.30 mg/dL (0.1-1.2) H 06/05/20 06:42 Direct Bilirubin 0.7 mg/dL (0-0.2) H 06/05/20 06:42 Indirect Bilirubin 0.6 mg/dL 06/05/20 06:42 AST 50 units/L (5-40) H 06/05/20 06:42 ALT 73 units/L (7-56) H 06/05/20 06:42 Alkaline Phosphatase 77 units/L (35-129) 06/05/20 06:42 Troponin T < 0.010 ng/mL (0.00-0.029) 06/02/20 12:27 NT-Pro-B Natriuret Pep 910.6 pg/mL (0-450) H 06/02/20 12:27 Total Protein 6.2 g/dL (6.3-8.2) L 06/05/20 06:42 Albumin 2.9 g/dL (3.9-5) L 06/05/20 06:42 Albumin/Globulin Ratio 0.9 % 06/05/20 06:42 TSH 1.690 mlU/mL (0.270-4.200) 06/02/20 12:27 Urine Color Edyta (Yellow) 06/02/20 10:40 Urine Turbidity Hazy (Clear) 06/02/20 10:40 Urine pH 5.0 (5.0-7.0) 06/02/20 10:40 Ur Specific [place] 1.026 (1.003-1.030) 06/02/20 10:40 Urine Protein 100 mg/dl mg/dL (Negative) 06/02/20 10:40 Urine Glucose (UA) Neg mg/dL (Negative) 06/02/20 10:40 Urine Ketones Neg mg/dL (Negative) 06/02/20 10:40 Urine Blood Neg (Negative) 06/02/20 10:40 Urine Nitrite Neg (Negative) 06/02/20 10:40 Urine Bilirubin Sm (Negative) 06/02/20 10:40 Urine Ictotest Positive (Negative) 06/02/20 10:40 Urine Urobilinogen 4.0 mg/dL (<2.0) 06/02/20 10:40 Ur Leukocyte Esterase Neg (Negative) 06/02/20 10:40 Urine WBC (Auto) 2.0 /HPF (0.0-6.0) 06/02/20 10:40 Urine RBC (Auto) 1.0 /HPF (0.0-6.0) 06/02/20 10:40 U Epithel Cells (Auto) < 1.0 /HPF (0-13.0) 06/02/20 10:40 Urine Mucus 2+ /HPF 06/02/20 10:40 Salicylates 1.7 mg/dL (2.8-20.0) L 06/02/20 12:27 Urine Opiates Screen Negative 06/02/20 10:40 Urine Methadone Screen Negative 06/02/20 10:40 Acetaminophen 5.0 ug/mL (10.0-30.0) L 06/02/20 12:27 Ur Barbiturates Screen Negative 06/02/20 10:40 Ur Phencyclidine Scrn Negative 06/02/20 10:40 Ur Amphetamines Screen Negative 06/02/20 10:40 U Benzodiazepines Scrn Presumptive positive 06/02/20 10:40 Urine Cocaine Screen Presumptive positive 06/02/20 10:40 U Marijuana (THC) Screen Presumptive positive 06/02/20 10:40 Drugs of Abuse Note Disclamer 06/02/20 10:40 Plasma/Serum Alcohol 0.02 % (0-0.07) 06/02/20 12:27 Hepatitis A IgM Ab Non-reactive (NonReactive) 06/03/20 05:16 Hep Bs Antigen Non-reactive (Negative) 06/03/20 05:16 Hep B Core IgM Ab Non-reactive (NonReactive) 06/03/20 05:16 Hepatitis C Antibody Non-reactive (NonReactive) 06/03/20 05:16 - Diagnostic Impressions Diagnostic Impressions: Echocardiogram 06/02/20 15:08 Transthoracic Echocardiogram Indication: SOB; Bilateral lower extremity swelling BP: 78/61 HR: 110 Conclusions *Severe, 4-chamber dilated cardiomyopathy. *Global left ventricular systolic function is severely decreased. *The estimated ejection fraction is 10-15%. *Mild concentric left ventricular hypertrophy is observed. *There is moderate mitral regurgitation. *There is moderate to severe tricuspid regurgitation. *There is evidence of mild pulmonary hypertension. *The right ventricular systolic pressure is calculated at 33 mmHg. *There is a minimial pericardial effusion. Findings Left Ventricle: The left ventricular chamber size is severely dilated. Mild concentric left ventricular hypertrophy is observed. Global left ventricular systolic function is severely decreased. The estimated ejection fraction is 10-15%. Left Atrium: The left atrium is moderate to severely dilated. Right Ventricle: The right ventricle is moderate to severely dilated. The right ventricular global systolic function is severely reduced. Right Atrium: The right atrial cavity size is severely dilated. Aortic Valve: The aortic valve is trileaflet. The aortic valve leaflets are mildly thickened. There is no evidence of aortic regurgitation. There is no evidence of aortic stenosis. Mitral Valve: The mitral valve leaflets are mildly thickened. There is moderate mitral regurgitation. Tricuspid Valve: The tricuspid valve leaflets are normal. There is moderate to severe tricuspid regurgitation. The right ventricular systolic pressure is calculated at 33 mmHg. There is evidence of mild pulmonary hypertension. Pulmonic Valve: There is mild pulmonic regurgitation. Pericardium: There is a minimial pericardial effusion. Aorta: There is no dilatation of the ascending aorta. There is no dilatation of the aortic root. Venous: The inferior vena cava is dilated. Measurements Chambers 2D Name Value Normal Range IVSd (2D) 0.87 cm (0.6 - 1.1) LVPWd (2D) 0.84 cm (0.6 - 1.1) LVIDd (2D) 6.25 cm (3.7 - 5.6) LVIDs (2D) 5.67 cm (2 - 3.8) LV FS (2D) 9.19 % - EF Teichholz (2D) 19.78 % - Ao root diameter (2D) 2.14 cm (2 - 3.7) Volumes/Mass Name Value Normal Range LA ESV SP 4CH (A/L) 59.45 ml - LA ESV SP 2CH (A/L) 89.36 ml - LA ESV BP (A/L) 72.93 ml - LA ESV BP (A/L) index 37.98 ml/m2 - LA ESV SP 4CH (MOD) 56.28 ml - LA ESV SP 2CH (MOD) 87.37 ml - LA ESV BP (MOD) 69 ml - LA ESV BP (MOD) index 35.94 ml/m2 - Aortic Valve Name Value Normal Range AV Vmax 0.95 m/sec - AV VTI 13.74 cm - AV peak gradient 3.59 mmHg - AV mean gradient 2.25 mmHg - LVOT diameter 2.1 cm - LVOT Vmax 0.79 m/sec - LVOT VTI 12.16 cm - LVOT peak gradient 2.5 mmHg - LVOT mean gradient 1.57 mmHg - SV LVOT 41.93 ml - CHEN (continuity Vmax) 2.87 cm2 - CHEN (continuity VTI) 3.05 cm2 - Ascending Ao 2.78 cm - Mitral Valve Name Value Normal Range MV Vmax 1.02 m/sec - MV VTI 11.35 cm - MV peak gradient 4.16 mmHg - MV mean gradient 2.15 mmHg - MV PHT 22.04 msec - MR Vmax 4.28 m/sec - MVA (PHT) 9.98 cm2 - MVA (continuity VTI) 3.69 cm2 - Tricuspid Valve Name Value Normal Range TR Vmax 2.51 m/sec - TR peak gradient 25 mmHg - RAP 8 mmHg - RVSP 33 mmHg - IVC diameter 3.11 cm (1.2 - 2.3) Pulmonic Valve/Qp:Qs Name Value Normal Range PV Vmax 0.67 m/sec - PV peak gradient 1.8 mmHg - MS end-diastolic Vmax 1.84 m/sec - PV acceleration time 79.92 msec - Swan/IV: Voiding Method Urinal IV Catheter Type [Left Forearm Peripheral IV ] Active Medications - Current Medications Current Medications: Generic Name Dose Route Start Last Admin Trade Name Freq PRN Reason Stop Dose Admin Acetaminophen 650 mg 06/02/20 15:07 06/04/20 20:05 Acetaminophen 325 Mg Tab PO 650 mg Q4H PRN Administration Pain MILD(1-3)/Fever >100.5/MALONE Carvedilol 3.125 mg 06/03/20 22:00 06/05/20 09:21 Carvedilol 3.125 Mg Tab PO 3.125 mg BID NADEEM Administration Enoxaparin Sodium 40 mg 06/02/20 22:00 06/04/20 21:39 Enoxaparin 40 Mg/0.4 Ml Inj SUB-Q 40 mg QDAY@2200 NADEEM Administration Protocol Folic Acid 1 mg 06/04/20 10:00 06/05/20 09:21 Folic Acid 1 Mg Tab PO 1 mg QDAY NADEEM Administration Furosemide 40 mg 06/02/20 18:00 06/05/20 05:57 Furosemide 40 Mg/4 Ml Inj IV Not Given BID@0600,1800 [facility] Clindamycin HCl 600 mg in 50 mls @ 100 mls/hr 06/02/20 16:00 06/05/20 01:30 Cleocin 600 Mg/50 Ml IV 100 mls/hr Q8H NADEEM Administration Protocol Milrinone Lactate/Dextrose 20 mg in 100 mls @ 6.638 mls/hr 06/03/20 13:00 06/04/20 20:29 Milrinone-D5w 20 Mg/100 Ml IV 06/06/20 12:59 0.375 mcg/kg/min TITR NADEEM 9.956 mls/hr Administration 0.25 MCG/KG/MIN Magnesium Hydroxide 30 ml 06/02/20 15:07 Magnesium Hydroxide (Mom) Oral Liqd Udc PO Q4H PRN Constipation Morphine Sulfate 2 mg 06/02/20 15:07 06/03/20 03:47 Morphine 2 Mg/1 Ml Inj IV 2 mg Q5MIN PRN Administration Chest Pain unrelieved by NTG Multivitamins 1 each 06/04/20 10:00 06/05/20 09:21 Multivitamins ,Therapeutic Tab PO 1 each QDAY NADEEM Administration Nicotine 21 mg 06/04/20 10:00 06/05/20 09:20 Nicotine 21 Mg/24 Hr Patch TD 21 mg QDAY NADEEM Administration Ondansetron HCl 4 mg 06/02/20 15:07 Ondansetron 4 Mg/2 Ml Inj IV Q8H PRN Nausea And Vomiting Potassium Chloride 40 meq 06/05/20 10:00 06/05/20 09:21 Potassium Chloride Er 20 Meq Tab PO 40 meq QDAY NADEEM Administration Sertraline HCl 25 mg 06/04/20 10:00 06/05/20 09:22 Sertraline 25 Mg Tab PO 25 mg QDAY NADEEM Administration Sodium Chloride 10 ml 06/02/20 22:00 06/05/20 09:22 Sodium Chloride 0.9% 10 Ml Flush Syringe IV 10 ml BID NADEEM Administration Sodium Chloride 10 ml 06/02/20 15:07 06/04/20 05:38 Sodium Chloride 0.9% 10 Ml Flush Syringe IV 10 ml PRN PRN Administration LINE FLUSH Trazodone HCl 50 mg 06/04/20 22:00 06/04/20 21:39 Trazodone 50 Mg Tab PO 50 mg QHS NADEEM Administration
[2020-06-05] MEDS: MILRINONE-D5W 20 MG/100 ML 20 MG/100 ML BAG IV SCH ×2 (11:38→21:51)
[2020-06-05] MEDS: ONDANSETRON 4 MG/2 ML INJ IV PRN (17:21)
--- NOTE | 2020-06-05 17:46 | Progress Note ---
Assessment and Plan Acute systolic heart failure Echo: 4 chamber dilated cardiomyopathy, LVEF 10-15%, RV severe dysfunction. Duration is uncertain. Elevated liver enzymes Poly substance abuse Recommendations: Daily weight and strict I's & O's. Replace K>4 and Mg>2. Advised dietary restrictions. Continue aggressive medical management for acute systolic heart failure. Continue IV milrinone. Further cardiac evaluation will depend on clinical course. Patient advised to stop drugs/ETOH. He understands. Subjective Date of service: 06/05/20 Interval history: No events. Feeling better. No CP. SOB improving. Tele - reviewed, ST 100s Objective Vital Signs Temp Pulse Resp BP BP Pulse Ox 06/05/20 16:55 98.0 F 103 H 20 114/86 96 06/05/20 13:01 97.6 F 06/05/20 12:06 104 H 20 115/83 100 06/05/20 09:05 99.1 F 06/05/20 09:02 108 H 18 124/83 97 06/05/20 04:33 98.5 F 102 H 20 99/51 97 06/04/20 23:55 98.3 F 100 H 20 84/45 96 06/04/20 20:34 91 H 06/04/20 20:05 18 06/04/20 19:32 98.4 F 91 H 20 120/96 97 06/04/20 18:03 98.8 F 106 H 18 94/57 95 - Physical Examination General: No Apparent Distress HEENT: Positive: PERRL Neck: Positive: trachea midline Cardiac: Positive: Regular Rhythm, Tachycardia Lungs: Positive: clear to auscultation Neuro: Positive: Grossly Intact Extremities: Present: +2 Edema - Labs and Meds Cardiac Enzymes 06/05/20 Range/Units 06:42 AST 50 H (5-40) units/L Comprehensive Metabolic Panel 06/05/20 Range/Units 06:42 Sodium 134 L (137-145) mmol/L Potassium 3.1 L (3.6-5.0) mmol/L Chloride 97.0 L (98-107) mmol/L Carbon Dioxide 25 (22-30) mmol/L BUN 14 (9-20) mg/dL Creatinine 0.9 (0.8-1.3) mg/dL Glucose 99 (75-100) mg/dL Calcium 8.6 (8.4-10.2) mg/dL Direct Bilirubin 0.7 H (0-0.2) mg/dL Indirect Bilirubin 0.6 mg/dL AST 50 H (5-40) units/L ALT 73 H (7-56) units/L Alkaline Phosphatase 77 (35-129) units/L Total Protein 6.2 L (6.3-8.2) g/dL Albumin 2.9 L (3.9-5) g/dL
[2020-06-05] MEDS: traZODone 50 MG TAB PO SCH (21:32)
[2020-06-05] MEDS: ENOXAPARIN 40 MG/0.4 ML INJ SUB-Q SCH (21:32)
[2020-06-06] MEDS: FUROSEMIDE 40 MG/4 ML INJ IV SCH ×2 (05:19→17:10)
[2020-06-06] MEDS: ACETAMINOPHEN 325 MG TAB PO PRN (05:49)
[2020-06-06 07:25] LABS: Alanine Aminotransferase 66 units/L (7-56); BUN/Creatinine Ratio 16; Blood Urea Nitrogen 14 mg/dL (9-20); Calcium 8.5 mg/dL (8.4-10.2); Hemolysis Index 1
[2020-06-06] MEDS: CLINDAMYCIN 600 MG/50 mL 600 MG/50 ML BAG IV SCH ×2 (08:00→16:45)
[2020-06-06] MEDS: MILRINONE-D5W 20 MG/100 ML 20 MG/100 ML BAG IV SCH (08:32)
[2020-06-06] MEDS: carvediloL 3.125 MG TAB PO SCH ×2 (09:41→21:53)
[2020-06-06] MEDS: NICOTINE 21 MG/24 HR PATCH TD SCH (09:55)
[2020-06-06] MEDS: POTASSIUM CHLORIDE ER 20 MEQ TAB PO SCH (09:55)
[2020-06-06] MEDS: MULTIVITAMINS ,THERAPEUTIC TAB PO SCH (09:55)
[2020-06-06] MEDS: SERTRALINE 25 MG TAB PO SCH (09:56)
[2020-06-06] MEDS: FOLIC ACID 1 MG TAB PO SCH (09:56)
--- NOTE | 2020-06-06 10:22 | Progress Note ---
Assessment and Plan Assessment and plan: Acute systolic congestive heart failure -Patient presented with bilateral lower extremity swelling -06/02 proBNP 910.6 -Cardiology consulted, patient recommendations -Cardiology has initiated the patient on Coreg, Aldactone, lisinopril -Milrinone drip 06/03 through 06/06 per cardiology -06/02 echocardiogram shows severe four-chamber dilated cardiomyopathy, global left ventricular systolic function severely decreased, estimated ejection fraction of 10 to 15%, mild concentric LVH, moderate MR, moderate to severe TR, mild pulmonary hypertension, RVSP calculated at 30 mmHg with minimal pericardial effusion. Transaminitis -Presented with LFTs: T bili 1.1, AST 129, ALT 154, alk phos 98 -06/03 hepatitis panel nonreactive -Presented with Serum Alcohol Level of 0.02 -GI consulted, appreciate recommendations -Trend LFTs -06/04 abdominal ultrasound uncomplicated cholelithiasis, mild hepatomegaly and hepatic cyst dialysis and small volume perihepatic free fluid. Depression -Patient admits to self-medication with polysubstance abuse following the loss of his mother and aunt -Patient denies any SI or HI at this time -Psych consulted, appreciate recommendations -06/04 psych consult completed and he does not recommend inpatient hospitalization at this time -Patient should has been started on antidepressants and vitamins Skin abscess of the occipital region -WOCN and general surgery consulted -Clindamycin IV -Wound care per nursing -06/04 s/p I&D with Dr. Parker of minimal pus and moderate amount of semisolid white material along with cyst wall and the cyst appeared to be infected. -06/04 wound culture pending -Follow-up in the surgery clinic post discharge Hyponatremia -Presented with a sodium of 133 -Trend sodium -Avoid MIVF in the setting of HFrEF -Monitor neuro status Hypochloremia -06/03 chloride 95 -Trend chloride Hypokalemia -06/04 potassium 3.4 -Repleted -Trend BMP Hypocalcemia -06/03 calcium 8.2, 06/04 calcium 8.3 -Trend calcium -Replete as needed EtoH abuse/cocaine abuse/marijuana abuse -Patient has a history of drinking six 6 pack/day of beer with 1 pint of hard liquor for "years" -[facility] protocol -Aspiration and seizure precautions -Supportive care -Nicotine TD DVT prophylaxis -SCDs to bilateral lower extremities while in bed -Lovenox subcu -GI prophylaxis Disposition: Continue milrinone drip until today. Cardiology to make assessment after drip is discontinued, monitor blood pressure. History Interval history: Patient's breathing is stable, continues to have lower extremity edema, advised patient to elevate his legs in the bed. No fevers or chills. I&D of abscess of vital signs stable. Hospitalist Physical - Physical exam Narrative exam: General appearance: Present: no acute distress, well-nourished - EENT Eyes: Present: PERRL, EOM intact ENT: hearing intact, clear oral mucosa - Respiratory Respiratory effort: normal Respiratory: bilateral: No crackles heard in lung bases. No wheezes or rhonchi heard - Cardiovascular Rhythm: regular Heart Sounds: Present: S1 & S2. Absent: rub, click - Extremities Extremities: no ischemia, +2 pitting edema bilaterally in lower extremities, normal temperature, normal color, Full ROM - Abdominal General gastrointestinal: soft, non-tender, nondistended, firm, decreased bowel sounds - Integumentary Integumentary: Present: Occipital cyst, 1.5 cm in packing in place, all other skin clear, warm, dry, normal turgor - Neurologic Neurologic: CNII-XII intact, no focal deficits, moves all extremities - Constitutional Vitals: Temp Pulse Resp BP Pulse Ox 98.6 F 102 H 18 94/51 98 06/06/20 08:29 06/06/20 08:29 06/06/20 08:29 06/06/20 08:29 06/06/20 08:29 General appearance: Present: no acute distress HEART Score - HEART Score Troponin: Troponin T < 0.010 ng/mL (0.00-0.029) 06/02/20 12:27 Results - Labs CBC & Chem 7: 06/03/20 05:16 06/06/20 05:30 Labs: Laboratory Last Values WBC 4.8 K/mm3 (4.5-11.0) 06/03/20 05:16 RBC 3.80 M/mm3 (3.65-5.03) 06/03/20 05:16 Hgb 11.9 gm/dl (11.8-15.2) 06/03/20 05:16 Hct 36.3 % (35.5-45.6) 06/03/20 05:16 MCV 95 fl (84-94) H 06/03/20 05:16 MCH 31 pg (28-32) 06/03/20 05:16 MCHC 33 % (32-34) 06/03/20 05:16 RDW 13.5 % (13.2-15.2) 06/03/20 05:16 Plt Count 177 K/mm3 (140-440) 06/03/20 05:16 Lymph % (Auto) 36.0 % (13.4-35.0) H 06/03/20 05:16 Bath % (Auto) 14.6 % (0.0-7.3) H 06/03/20 05:16 Eos % (Auto) 0.8 % (0.0-4.3) 06/03/20 05:16 Baso % (Auto) 1.0 % (0.0-1.8) 06/03/20 05:16 Lymph # (Auto) 1.7 K/mm3 (1.2-5.4) 06/03/20 05:16 Bath # (Auto) 0.7 K/mm3 (0.0-0.8) 06/03/20 05:16 Eos # (Auto) 0.0 K/mm3 (0.0-0.4) 06/03/20 05:16 Baso # (Auto) 0.0 K/mm3 (0.0-0.1) 06/03/20 05:16 Seg Neutrophils % 47.6 % (40.0-70.0) 06/03/20 05:16 Seg Neutrophils # 2.3 K/mm3 (1.8-7.7) 06/03/20 05:16 PT 19.7 Sec. (12.2-14.9) H 06/03/20 05:16 INR 1.67 (0.87-1.13) H 06/03/20 05:16 Sodium 134 mmol/L (137-145) L 06/06/20 05:30 Potassium 3.2 mmol/L (3.6-5.0) L 06/06/20 05:30 Chloride 97.8 mmol/L (98-107) L 06/06/20 05:30 Carbon Dioxide 27 mmol/L (22-30) 06/06/20 05:30 Anion Gap 12 mmol/L 06/06/20 05:30 BUN 14 mg/dL (9-20) 06/06/20 05:30 Creatinine 0.9 mg/dL (0.8-1.3) 06/06/20 05:30 Estimated GFR > 60 ml/min 06/06/20 05:30 BUN/Creatinine Ratio 16 % 06/06/20 05:30 Glucose 106 mg/dL (75-100) H 06/06/20 05:30 POC Glucose 118 mg/dL (70-105) H 06/05/20 21:41 Calcium 8.5 mg/dL (8.4-10.2) 06/06/20 05:30 Total Bilirubin 1.10 mg/dL (0.1-1.2) 06/06/20 05:30 Direct Bilirubin 0.7 mg/dL (0-0.2) H 06/05/20 06:42 Indirect Bilirubin 0.6 mg/dL 06/05/20 06:42 AST 40 units/L (5-40) 06/06/20 05:30 ALT 66 units/L (7-56) H 06/06/20 05:30 Alkaline Phosphatase 77 units/L (35-129) 06/06/20 05:30 Troponin T < 0.010 ng/mL (0.00-0.029) 06/02/20 12:27 NT-Pro-B Natriuret Pep 910.6 pg/mL (0-450) H 06/02/20 12:27 Total Protein 6.4 g/dL (6.3-8.2) 06/06/20 05:30 Albumin 3.0 g/dL (3.9-5) L 06/06/20 05:30 Albumin/Globulin Ratio 0.9 % 06/06/20 05:30 TSH 1.690 mlU/mL (0.270-4.200) 06/02/20 12:27 Urine Color Edyta (Yellow) 06/02/20 10:40 Urine Turbidity Hazy (Clear) 06/02/20 10:40 Urine pH 5.0 (5.0-7.0) 06/02/20 10:40 Ur Specific [place] 1.026 (1.003-1.030) 06/02/20 10:40 Urine Protein 100 mg/dl mg/dL (Negative) 06/02/20 10:40 Urine Glucose (UA) Neg mg/dL (Negative) 06/02/20 10:40 Urine Ketones Neg mg/dL (Negative) 06/02/20 10:40 Urine Blood Neg (Negative) 06/02/20 10:40 Urine Nitrite Neg (Negative) 06/02/20 10:40 Urine Bilirubin Sm (Negative) 06/02/20 10:40 Urine Ictotest Positive (Negative) 06/02/20 10:40 Urine Urobilinogen 4.0 mg/dL (<2.0) 06/02/20 10:40 Ur Leukocyte Esterase Neg (Negative) 06/02/20 10:40 Urine WBC (Auto) 2.0 /HPF (0.0-6.0) 06/02/20 10:40 Urine RBC (Auto) 1.0 /HPF (0.0-6.0) 06/02/20 10:40 U Epithel Cells (Auto) < 1.0 /HPF (0-13.0) 06/02/20 10:40 Urine Mucus 2+ /HPF 06/02/20 10:40 Salicylates 1.7 mg/dL (2.8-20.0) L 06/02/20 12:27 Urine Opiates Screen Negative 06/02/20 10:40 Urine Methadone Screen Negative 06/02/20 10:40 Acetaminophen 5.0 ug/mL (10.0-30.0) L 06/02/20 12:27 Ur Barbiturates Screen Negative 06/02/20 10:40 Ur Phencyclidine Scrn Negative 06/02/20 10:40 Ur Amphetamines Screen Negative 06/02/20 10:40 U Benzodiazepines Scrn Presumptive positive 06/02/20 10:40 Urine Cocaine Screen Presumptive positive 06/02/20 10:40 U Marijuana (THC) Screen Presumptive positive 06/02/20 10:40 Drugs of Abuse Note Disclamer 06/02/20 10:40 Plasma/Serum Alcohol 0.02 % (0-0.07) 06/02/20 12:27 Hepatitis A IgM Ab Non-reactive (NonReactive) 06/03/20 05:16 Hep Bs Antigen Non-reactive (Negative) 06/03/20 05:16 Hep B Core IgM Ab Non-reactive (NonReactive) 06/03/20 05:16 Hepatitis C Antibody Non-reactive (NonReactive) 01/28/21 05:16 Microbiology: Microbiology 06/04/20 12:30 Head Wound Culture - Preliminary - Diagnostic Impressions Diagnostic Impressions: Echocardiogram 06/02/20 15:08 Transthoracic Echocardiogram Indication: SOB; Bilateral lower extremity swelling BP: 78/61 HR: 110 Conclusions *Severe, 4-chamber dilated cardiomyopathy. *Global left ventricular systolic function is severely decreased. *The estimated ejection fraction is 10-15%. *Mild concentric left ventricular hypertrophy is observed. *There is moderate mitral regurgitation. *There is moderate to severe tricuspid regurgitation. *There is evidence of mild pulmonary hypertension. *The right ventricular systolic pressure is calculated at 33 mmHg. *There is a minimial pericardial effusion. Findings Left Ventricle: The left ventricular chamber size is severely dilated. Mild concentric left ventricular hypertrophy is observed. Global left ventricular systolic function is severely decreased. The estimated ejection fraction is 10-15%. Left Atrium: The left atrium is moderate to severely dilated. Right Ventricle: The right ventricle is moderate to severely dilated. The right ventricular global systolic function is severely reduced. Right Atrium: The right atrial cavity size is severely dilated. Aortic Valve: The aortic valve is trileaflet. The aortic valve leaflets are mildly thickened. There is no evidence of aortic regurgitation. There is no evidence of aortic stenosis. Mitral Valve: The mitral valve leaflets are mildly thickened. There is moderate mitral regurgitation. Tricuspid Valve: The tricuspid valve leaflets are normal. There is moderate to severe tricuspid regurgitation. The right ventricular systolic pressure is calculated at 33 mmHg. There is evidence of mild pulmonary hypertension. Pulmonic Valve: There is mild pulmonic regurgitation. Pericardium: There is a minimial pericardial effusion. Aorta: There is no dilatation of the ascending aorta. There is no dilatation of the aortic root. Venous: The inferior vena cava is dilated. Measurements Chambers 2D Name Value Normal Range IVSd (2D) 0.87 cm (0.6 - 1.1) LVPWd (2D) 0.84 cm (0.6 - 1.1) LVIDd (2D) 6.25 cm (3.7 - 5.6) LVIDs (2D) 5.67 cm (2 - 3.8) LV FS (2D) 9.19 % - EF Teichholz (2D) 19.78 % - Ao root diameter (2D) 2.14 cm (2 - 3.7) Volumes/Mass Name Value Normal Range LA ESV SP 4CH (A/L) 59.45 ml - LA ESV SP 2CH (A/L) 89.36 ml - LA ESV BP (A/L) 72.93 ml - LA ESV BP (A/L) index 37.98 ml/m2 - LA ESV SP 4CH (MOD) 56.28 ml - LA ESV SP 2CH (MOD) 87.37 ml - LA ESV BP (MOD) 69 ml - LA ESV BP (MOD) index 35.94 ml/m2 - Aortic Valve Name Value Normal Range AV Vmax 0.95 m/sec - AV VTI 13.74 cm - AV peak gradient 3.59 mmHg - AV mean gradient 2.25 mmHg - LVOT diameter 2.1 cm - LVOT Vmax 0.79 m/sec - LVOT VTI 12.16 cm - LVOT peak gradient 2.5 mmHg - LVOT mean gradient 1.57 mmHg - SV LVOT 41.93 ml - CHEN (continuity Vmax) 2.87 cm2 - CHEN (continuity VTI) 3.05 cm2 - Ascending Ao 2.78 cm - Mitral Valve Name Value Normal Range MV Vmax 1.02 m/sec - MV VTI 11.35 cm - MV peak gradient 4.16 mmHg - MV mean gradient 2.15 mmHg - MV PHT 22.04 msec - MR Vmax 4.28 m/sec - MVA (PHT) 9.98 cm2 - MVA (continuity VTI) 3.69 cm2 - Tricuspid Valve Name Value Normal Range TR Vmax 2.51 m/sec - TR peak gradient 25 mmHg - RAP 8 mmHg - RVSP 33 mmHg - IVC diameter 3.11 cm (1.2 - 2.3) Pulmonic Valve/Qp:Qs Name Value Normal Range PV Vmax 0.67 m/sec - PV peak gradient 1.8 mmHg - MN end-diastolic Vmax 1.84 m/sec - PV acceleration time 79.92 msec - Swan/IV: Voiding Method Urinal IV Catheter Type [Left Forearm Peripheral IV ] Active Medications - Current Medications Current Medications: Generic Name Dose Route Start Last Admin Trade Name Freq PRN Reason Stop Dose Admin Acetaminophen 650 mg 06/02/20 15:07 06/06/20 05:49 Acetaminophen 325 Mg Tab PO 650 mg Q4H PRN Administration Pain MILD(1-3)/Fever >100.5/MALONE Carvedilol 3.125 mg 06/03/20 22:00 06/06/20 09:41 Carvedilol 3.125 Mg Tab PO Not Given BID NADEEM Enoxaparin Sodium 40 mg 06/02/20 22:00 06/05/20 21:32 Enoxaparin 40 Mg/0.4 Ml Inj SUB-Q 40 mg QDAY@2200 NADEEM Administration Protocol Folic Acid 1 mg 06/04/20 10:00 06/06/20 09:56 Folic Acid 1 Mg Tab PO 1 mg QDAY NADEEM Administration Furosemide 40 mg 06/02/20 18:00 06/06/20 05:19 Furosemide 40 Mg/4 Ml Inj IV 40 mg BID@0600,1800 NADEEM Administration Clindamycin HCl 600 mg in 50 mls @ 100 mls/hr 06/02/20 16:00 06/06/20 08:00 Cleocin 600 Mg/50 Ml IV 100 mls/hr Q8H NADEEM Administration Protocol Milrinone Lactate/Dextrose 20 mg in 100 mls @ 6.638 mls/hr 06/03/20 13:00 06/06/20 08:32 Milrinone-D5w 20 Mg/100 Ml IV 06/06/20 12:59 0.375 mcg/kg/min TITR NADEEM 9.956 mls/hr Administration 0.25 MCG/KG/MIN Magnesium Hydroxide 30 ml 06/02/20 15:07 Magnesium Hydroxide (Mom) Oral Liqd Udc PO Q4H PRN Constipation Morphine Sulfate 2 mg 06/02/20 15:07 06/03/20 03:47 Morphine 2 Mg/1 Ml Inj IV 2 mg Q5MIN PRN Administration Chest Pain unrelieved by NTG Multivitamins 1 each 06/04/20 10:00 06/06/20 09:55 Multivitamins ,Therapeutic Tab PO 1 each QDAY NADEEM Administration Nicotine 21 mg 06/04/20 10:00 06/06/20 09:55 Nicotine 21 Mg/24 Hr Patch TD 21 mg QDAY NADEEM Administration Ondansetron HCl 4 mg 06/02/20 15:07 06/05/20 17:21 Ondansetron 4 Mg/2 Ml Inj IV 4 mg Q8H PRN Administration Nausea And Vomiting Potassium Chloride 40 meq 06/05/20 10:00 06/06/20 09:55 Potassium Chloride Er 20 Meq Tab PO 40 meq QDAY NADEEM Administration Sertraline HCl 25 mg 06/04/20 10:00 06/06/20 09:56 Sertraline 25 Mg Tab PO 25 mg QDAY NADEEM Administration Sodium Chloride 10 ml 06/02/20 22:00 06/06/20 09:56 Sodium Chloride 0.9% 10 Ml Flush Syringe IV 10 ml BID NADEEM Administration Sodium Chloride 10 ml 06/02/20 15:07 06/04/20 05:38 Sodium Chloride 0.9% 10 Ml Flush Syringe IV 10 ml PRN PRN Administration LINE FLUSH Trazodone HCl 50 mg 06/04/20 22:00 06/05/20 21:32 Trazodone 50 Mg Tab PO 50 mg QHS NADEEM Administration
[2020-06-06] MEDS: ONDANSETRON 4 MG/2 ML INJ IV PRN (11:03)
[2020-06-06] MEDS: MORPHINE 2 MG/1 ML INJ IV PRN (11:03)
--- NOTE | 2020-06-06 13:17 | Progress Note ---
Assessment and Plan Acute systolic heart failure Echo: 4 chamber dilated cardiomyopathy, LVEF 10-15%, RV severe dysfunction. Duration is uncertain. Elevated liver enzymes Poly-substance abuse Recommendations: Daily weight and strict I's & O's. Replace K>4 and Mg>2. Advised dietary restrictions. Continue aggressive medical management for acute systolic heart failure. Continue IV lasix. Stop IV milrinone. Patient advised to stop drugs/ETOH. He understands. Subjective Date of service: 06/06/20 Interval history: No events. No CP. SOB improving. Tele - reviewed, ST 110s Objective Vital Signs Temp Pulse Resp BP BP Pulse Ox 06/06/20 12:21 97.6 F 114 H 18 106/69 97 06/06/20 08:29 98.6 F 102 H 18 94/51 98 06/06/20 08:28 98.6 F 103 H 18 90/45 97 06/06/20 04:53 97.8 F 109 H 18 110/82 97 06/06/20 04:00 98 H 06/06/20 00:25 98.6 F 106 H 18 97/61 99 06/05/20 21:31 77 104/71 06/05/20 20:09 77 18 104/71 94 06/05/20 20:00 102 H 18 94 06/05/20 16:55 98.0 F 103 H 20 114/86 96 - Physical Examination General: No Apparent Distress HEENT: Positive: PERRL Neck: Positive: trachea midline Cardiac: Positive: Regular Rhythm, Tachycardia Lungs: Positive: clear to auscultation Neuro: Positive: Grossly Intact Abdomen: Positive: Unremarkable, Soft Extremities: Present: +2 Edema - Labs and Meds Cardiac Enzymes 06/06/20 Range/Units 05:30 AST 40 (5-40) units/L Comprehensive Metabolic Panel 06/06/20 Range/Units 05:30 Sodium 134 L (137-145) mmol/L Potassium 3.2 L (3.6-5.0) mmol/L Chloride 97.8 L (98-107) mmol/L Carbon Dioxide 27 (22-30) mmol/L BUN 14 (9-20) mg/dL Creatinine 0.9 (0.8-1.3) mg/dL Glucose 106 H (75-100) mg/dL Calcium 8.5 (8.4-10.2) mg/dL AST 40 (5-40) units/L ALT 66 H (7-56) units/L Alkaline Phosphatase 77 (35-129) units/L Total Protein 6.4 (6.3-8.2) g/dL Albumin 3.0 L (3.9-5) g/dL
[2020-06-06] MEDS: ENOXAPARIN 40 MG/0.4 ML INJ SUB-Q SCH (21:53)
[2020-06-06] MEDS: traZODone 50 MG TAB PO SCH (21:53)
[2020-06-07] MEDS: FUROSEMIDE 40 MG/4 ML INJ IV SCH (07:28)
[2020-06-07] MEDS: CLINDAMYCIN 600 MG/50 mL 600 MG/50 ML BAG IV SCH (07:28)
[2020-06-07 07:48] LABS: BUN/Creatinine Ratio 16; Blood Urea Nitrogen 14 mg/dL (9-20); Calcium 8.6 mg/dL (8.4-10.2); Hemolysis Index 0
[2020-06-07 09:13] VITALS: BP 115/86
[2020-06-07] MEDS: NICOTINE 21 MG/24 HR PATCH TD SCH (09:16)
[2020-06-07] MEDS: carvediloL 3.125 MG TAB PO SCH (09:16)
[2020-06-07] MEDS: POTASSIUM CHLORIDE ER 20 MEQ TAB PO SCH (09:16)
[2020-06-07] MEDS: SERTRALINE 25 MG TAB PO SCH (09:17)
[2020-06-07] MEDS: MULTIVITAMINS ,THERAPEUTIC TAB PO SCH (09:17)
[2020-06-07] MEDS: FOLIC ACID 1 MG TAB PO SCH (09:17)
[2020-06-07] MEDS: ONDANSETRON 4 MG/2 ML INJ IV PRN (09:21)
--- NOTE | 2020-06-07 12:23 | Progress Note ---
Assessment and Plan - Patient Problems (1) New onset of congestive heart failure Current Visit: Yes Status: Acute Plan to address problem: Patient has congestive heart failure associated with severe four-chamber cardiomyopathy. Will continue guideline directed medical therapy as previously outlined. Subjective Date of service: 06/07/20 Interval history: Patient is comfortable, shortness of breath is improved, no significant residual edema. No new cardiac complaints. Objective Vital Signs Temp Pulse Resp BP Pulse Ox 06/07/20 08:36 98.2 F 81 18 115/86 99 06/07/20 06:01 98.5 F 99 H 18 105/76 100 06/07/20 04:00 93 H 06/07/20 00:33 98.4 F 103 H 18 119/87 94 06/06/20 21:53 115 H 116/88 06/06/20 20:51 98.2 F 115 H 18 116/88 97 06/06/20 20:00 95 H 06/06/20 15:28 97.5 F L 107 H 18 114/87 96 - Physical Examination General: No Apparent Distress HEENT: Positive: PERRL Neck: Positive: trachea midline Cardiac: Positive: Reg Rate and Rhythm Lungs: Positive: Decreased Breath Sounds Neuro: Positive: Grossly Intact Abdomen: Positive: Unremarkable, Soft Skin: Positive: Clear Extremities: Present: edema (trace) - Labs and Meds Comprehensive Metabolic Panel 06/06/20 06/07/20 Range/Units 18:07 06:22 Sodium 135 L (137-145) mmol/L Potassium 3.9 D 3.9 (3.6-5.0) mmol/L Chloride 98.4 (98-107) mmol/L Carbon Dioxide 29 (22-30) mmol/L BUN 14 (9-20) mg/dL Creatinine 0.9 (0.8-1.3) mg/dL Glucose 91 (75-100) mg/dL Calcium 8.6 (8.4-10.2) mg/dL
--- NOTE | 2020-06-07 14:41 | Discharge Summary ---
<AMY MTZ - Last Filed: 06/07/20 15:04> Providers - Providers Date of Admission: 06/03/20 13:56 Attending physician: NANCY MARKS MD 06/02/20 15:07 Consult to Physician [CONS] Routine Comment: Consulting Provider: DEON FUENTES Physician Instructions: Reason For Exam: Elevetaed liver enzymes, Drug and alcohol abuse Consult to Physician [CONS] Routine Comment: Consulting Provider: MEKA WOOTEN Physician Instructions: Reason For Exam: CHF- New onset 06/02/20 15:13 Consult to Mental Health [CONS] Routine Reason For Exam: depression, drug abuse 06/03/20 08:39 Consult to Physician [CONS] Routine Comment: Consulting Provider: DEANNA CAM Physician Instructions: Reason For Exam: depression, drug abuse 06/03/20 08:45 Consult to Wound/ET Nurse [CONS] Routine Reason For Exam: wound eval 06/03/20 13:50 Consult to Physician [CONS] Routine Comment: Consulting Provider: KOJO URBINA Physician Instructions: please evaluate abscess Reason For Exam: evaluate posterior neck Primary care physician: EMERGENCY VEHICLE TECHNICIAN Hospitalization Condition: Stable Hospital course: This is a 35-year-old man with history of polysubstance and alcohol abuse who presented to the emergency department on 06/02 with complaints of bilateral lower extremity edema, scrotal edema, abdominal distention, orthopnea, nonproductive cough and difficulty breathing over the past several months which worsened over the past 2 weeks. Patient indicated that he has increased his substance abuse after personal losses but denies any homicidal or suicidal ideations. Work-up in the emergency department included a CXR which showed mild to moderate interstitial edema, elevated LFTs, slight hyponatremia, elevated proBNP at 910 and UDS positive for benzodiazepine, cocaine and marijuana with a serum plasma alcohol level of 0.02. Patient was also noted to have an abscess the back of his head. Patient was admitted to the hospitalist service for acute congestive heart failure, transaminitis and skin abscess. Surgery, WOCN, psych, cardiology and gastroenterology were consulted. He underwent an echocardiogram and was ini tiated on Coreg, lisinopril, Aldactone and milrinone by cardiology in addition to Lasix 40 twice daily on 06/03. On 06/04 patient is noted to be hypokalemic, hyponatremic and hypochloremic with hypocalcemia. Pateint is s/p milrinone gtt and an I&D by surgery. Patient will need to followup with his PCP, cardiology, and with wound care within 1-2 weeks of discharge. He will be discharged with [facility] for wound care services. Assessment and Plan Acute systolic congestive heart failure -Patient presented with bilateral lower extremity swelling -06/02 proBNP 910.6 -Cardiology consulted, appreciate recommendations -Cardiology has initiated the patient on Coreg, Aldactone, lisinopril -Milrinone drip 06/03 through 06/06 per cardiology -06/02 echocardiogram shows severe four-chamber dilated cardiomyopathy, global left ventricular systolic function severely decreased, estimated ejection fraction of 10 to 15%, mild concentric LVH, moderate MR, moderate to severe TR, mild pulmonary hypertension, RVSP calculated at 30 mmHg with minimal pericardial effusion. Transaminitis -Presented with LFTs: T bili 1.1, AST 129, ALT 154, alk phos 98 -06/06: LFTs: AST 40, ALT 66, alk phos 77 -06/03 hepatitis panel nonreactive -Presented with Serum Alcohol Level of 0.02 -GI consulted, appreciate recommendations -06/04 abdominal ultrasound uncomplicated cholelithiasis, mild hepatomegaly, fa tty liver and hepatic cyst dialysis and small volume perihepatic free fluid. Depression -Patient admits to self-medication with polysubstance abuse following the loss of his mother and aunt -Patient denies any SI or HI at this time -Psych consulted, appreciate recommendations -06/04 psych consult completed and he does not recommend inpatient hospitalization at this time -Patient should has been started on antidepressants and vitamins Skin abscess of the occipital region -WOCN and general surgery consulted -s/p Clindamycin IV for 3 days every 8 hours -Wound care per nursing -06/04 s/p I&D with Dr. Urbina of minimal pus and moderate amount of semisolid white material along with cyst wall and the cyst appeared to be infected. -06/04 wound culture no growth to date -Follow-up in the surgery clinic post discharge Hyponatremia -Presented with a sodium of 133 -Discharge sodium 135 -Avoid MIVF in the setting of HFrEF -Monitor neuro status Hypochloremia -06/03 chloride 95 -Discharge Chloride 98.4 Hypokalemia -06/04 potassium 3.4 -Dioscharge potassium 3.9 Hypocalcemia -06/03 calcium 8.2, 06/04 calcium 8.3 -Discharge Ca 8.6 EtoH abuse/cocaine abuse/marijuana abuse -Patient has a history of drinking six 6 pack/day of beer with 1 pint of hard liquor for "years" -Cesstion education completed -CM provided with resources for cessation -Continue Nicotine TD to aid in cessation Disposition: DC-01 TO HOME OR SELFCARE Time spent for discharge: 35 Core Measure Documentation - Palliative Care Palliative Care/ Comfort Measures: Not Applicable - Core Measures Any of the following diagnoses?: heart failure - Heart Failure Discharge Requirements YOLANDE/ARB for LVSD if EF <40%: Yes Beta gary at discharge: Yes Exam - Constitutional Vitals: Temp Pulse Resp BP Pulse Ox 98.2 F 81 18 115/86 99 06/07/20 08:36 06/07/20 08:36 06/07/20 08:36 06/07/20 08:36 06/07/20 08:36 General appearance: Present: no acute distress - EENT Eyes: Present: PERRL, EOM intact ENT: hearing intact, clear oral mucosa, dentition normal - Neck Neck: Present: normal ROM - Respiratory Respiratory effort: normal Respiratory: bilateral: CTA - Cardiovascular Rhythm: regular Heart Sounds: Present: S1 & S2. Absent: systolic murmur, diastolic murmur - Extremities Extremities: no ischemia, pulses intact, pulses symmetrical, No edema, normal temperature, normal color, Full ROM Peripheral Pulses: within normal limits - Abdominal General gastrointestinal: Present: soft, non-tender, non-distended, normal bowel sounds - Integumentary Integumentary: Present: clear, warm, dry - Musculoskeletal Musculoskeletal: strength equal bilaterally - Psychiatric Psychiatric: appropriate mood/affect, cooperative - Neurologic Neurologic: CNII-XII intact, no focal deficits, moves all extremities - Allied Health Allied health notes reviewed: nursing Plan Activity: advance as tolerated Diet: low fat, low cholesterol, low salt Wound: per your surgeon's advice, per wound nurse instructions Special Instructions: restrict fluid intake to, record daily weights, record daily BP diary, smoking cessation, home health RN Additional Instructions: Present to nearest emergency department or contact primary care physician if you experience worsening symptoms. You will need to follow-up with cardiology, wound care, surgery within 1 to 2 weeks of discharge. Polysubstance abuse cessation strongly encouraged. Medical compliance stron gly encouraged. Plan of Treatment: [facility] [phone] Follow up with: PRIMARY MD YEN [Primary Care Provider] - 3-5 Days [facility] [Outside] - 7 Days [facility] [Outside] - 7 Days [facility] [Outside] - 7 Days [facility] [Outside] - 7 Days DEON FUENTES MD [Staff Physician] - 7 Days KOJO URBINA DO [Staff Physician] - 7 Days [facility] [Outside] - 7 Days [facility] [Outside] - 7 Days DEANNA CAM MD [Staff Physician] - 7 Days Prescriptions: traZODone [Desyrel] 50 mg PO QHS #30 tablet carvediloL [Coreg] 3.125 mg PO BID #60 tablet Folic Acid [Folvite] 1 mg PO QDAY #30 tablet Nicotine [Habitrol] 21 mg TD QDAY #30 patch Potassium Chloride [K-Dur] 10 meq PO QDAY #7 tablet Furosemide [Lasix TAB] 40 mg PO QDAY #30 tablet Multivitamin Tab [Multiple Vitamin TAB (Theragran)] 1 each PO QDAY #30 tablet Sertraline [Zoloft] 25 mg PO QDAY #30 tablet <NANCY MARKS - Last Filed: 06/07/20 18:23> Providers - Providers Date of Admission: 06/03/20 13:56 Attending physician: NANCY MARKS MD 06/02/20 15:07 Consult to Physician [CONS] Routine Comment: Consulting Provider: DEON FUENTES Physician Instructions: Reason For Exam: Elevetaed liver enzymes, Drug and alcohol abuse Consult to Physician [CONS] Routine Comment: Consulting Provider: MEKA WOOTEN Physician Instructions: Reason For Exam: CHF- New onset 06/02/20 15:13 Consult to Mental Health [CONS] Routine Reason For Exam: depression, drug abuse 06/03/20 08:39 Consult to Physician [CONS] Routine Comment: Consulting Provider: DEANNA CAM Physician Instructions: Reason For Exam: depression, drug abuse 06/03/20 08:45 Consult to Wound/ET Nurse [CONS] Routine Reason For Exam: wound eval 06/03/20 13:50 Consult to Physician [CONS] Routine Comment: Consulting Provider: KOJO URBINA Physician Instructions: please evaluate abscess Reason For Exam: evaluate posterior neck 06/07/20 14:56 Consult to Case Management [CONS] Routine 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 Patient educated on strong compliance with his medications. Exam - Constitutional Vitals: Temp Pulse Resp BP Pulse Ox 98.2 F 81 18 115/86 99 06/07/20 08:36 06/07/20 08:36 06/07/20 08:36 06/07/20 08:36 06/07/20 08:36
== END 2020-06-07 17:21 | disposition home health service (06) | DRG 602 ==
LOC: ED 10:55 → 4A 14:21 → OBSVTOIN 06-03 13:56
PROVIDERS: ADMIT Internal Medicine Geriatric Medicine; ATTEND Family Medicine
PROC: 0H90XZZ Drainage of Scalp Skin, External Approach (ICD-10-PCS; principal; 2020-06-04)
DX: L02.811 Cutaneous abscess of head [any part, except face] (principal); I50.21 Acute systolic (congestive) heart failure; I42.0 Dilated cardiomyopathy; E87.1 Hypo-osmolality and hyponatremia; L02.91 Cutaneous abscess, unspecified; F10.10 Alcohol abuse, uncomplicated; F14.10 Cocaine abuse, uncomplicated; F32.9 Major depressive disorder, single episode, unspecified; F17.200 Nicotine dependence, unspecified, uncomplicated; E87.8 Other disorders of electrolyte and fluid balance, not elsewhere classified; E87.6 Hypokalemia; E83.51 Hypocalcemia; F15.90 Other stimulant use, unspecified, uncomplicated; Z79.899 Other long term (current) drug therapy; Z79.891 Long term (current) use of opiate analgesic; Z79.01 Long term (current) use of anticoagulants
CPT/HCPCS: 36415; 71046; 76705; 80048; 80053; 80074; 80076; 80307; 80320; 81001; 82962; 83880; 84132; 84443; 84484; 85025; 85610; 87116; 93005; 93306; 96365; 96375; 96376; G0378; G0480; J1650; J1940; J2260; J2270; J2405